=== PATIENT | male | born 1990 | race Caucasian/White ===

== ENCOUNTER 2022-10-31 12:06 | Inpatient (IN) ==
[2022-10-31 13:11] LABS: Hematocrit 34.8 % (38-53); Hemoglobin 11.9 g/dL (13.2-16.3); Mean Corpuscular Hemoglobin 29.8 pg (27-33); Mean Corpuscular Hgb Conc 34.1 g/dL (31-36); Mean Corpuscular Volume 87.4 fL (80-97); Mean Platelet Volume 8.2 fL (7.5-11.2); Platelet Count 174 10^3/uL (150-450); Red Blood Count 3.98 10^6/uL (4.06-5.63); Red Cell Distribution Width 13.9 % (12-17); White Blood Count 16.4 10^3/uL (3.6-10.2)
[2022-10-31] MEDS ORDERED: NS 0.9% 1000 ml BAG 1,000 ML IV ONE ×2 (13:12→13:13)
[2022-10-31] MEDS ORDERED: Calcitonin (Salmon) INJ 200 UNITS/ML 2 ML VIAL (400 units) SUBCUT ONE (13:13)
[2022-10-31 13:30] LABS: Albumin 3.5 g/dL (3.2-5.2); Albumin/Globulin Ratio 1.1 (1-3); Creatinine, Serum 3.64 mg/dL (0.67-1.17); Globulin 3.3 g/dL (2-4); Potassium 4.6 mmol/L (3.5-5.0); Total Bilirubin 0.7 mg/dL (0.2-1.0); Total Protein 6.8 g/dL (6.4-8.9); eGFR CKD-EPI 21.6 (>60)
[2022-10-31 14:01] LABS: Calcium 14.1 mg/dL (8.6-10.3)
[2022-10-31 14:09] LABS: ABS Basophils 0.2 10^3/uL (0.0-0.1); ABS Eosinophils 0.2 10^3/uL (0.0-0.5); ABS Lymphocytes 5.7 10^3/uL (1.0-4.8); ABS Neutrophils 9.3 10^3/uL (1.5-7.6); ABS Nucleated RBC 0.01 10^3/ul; Eosinophil % 1.4 %; Lymphocyte % 34.8 %; Nucleated Red Blood Cells % 0.1 /100 WBC (0.0-0.4)
[2022-10-31 14:27] LABS: Uric Acid 11.6 mg/dL (4.4-7.6)
[2022-10-31] MEDS ORDERED: Rasburicase 1.5 MG VIAL(NF) IVPB ONE ×2 (15:00)
[2022-10-31] MEDS ORDERED: Ondansetron 4 mg VIAL 2 MG/ML 2 ml VIAL IV PRN (15:09)
[2022-10-31] MEDS ORDERED: Morphine 2 MG/ML SYRINGE IV PRN (16:38)
[2022-10-31] MEDS ORDERED: Rasburicase 6 MG in NS 0.9% 50 ML 46 ML IVPB ONE (17:00)
[2022-10-31] MEDS ORDERED: Prochlorperazine 5 mg/ml 2 ml VIAL (10 mg) IV PRN (17:44)
[2022-10-31] MEDS ORDERED: Senna TAB 8.6 mg TAB PO ONE (17:46)
[2022-10-31] MEDS ORDERED: Senna TAB 8.6 mg TAB PO PRN (17:47)
[2022-10-31] MEDS ORDERED: Magnesium Hydroxide LIQ 30 ML UDC PO PRN (17:47)
[2022-10-31] MEDS: Acetaminophen IV 1 GM/100ML 1,000 MG/100 ML BAG IV SCH (17:50)
[2022-10-31] MEDS: NS 0.9% 1000 ml BAG 1,000 ML IV SCH ×2 (18:26→22:59)
[2022-10-31] MEDS: Heparin 5000 UNITS/ML 1 mL VIAL SUBCUT SCH (21:07)
[2022-10-31] MEDS: Calcitonin (Salmon) INJ 200 UNITS/ML 2 ML VIAL (400 units) SUBCUT SCH (21:08)
[2022-10-31] MEDS: Morphine 2 MG/ML SYRINGE IV PRN (23:02)
[2022-11-01] MEDS: Acetaminophen IV 1 GM/100ML 1,000 MG/100 ML BAG IV SCH ×4 (00:12→22:51)
[2022-11-01] MEDS: Morphine 2 MG/ML SYRINGE IV PRN ×3 (02:48→20:15)
[2022-11-01 03:11] LABS: ABS Basophils 0.1 10^3/uL (0.0-0.1); ABS Eosinophils 0.2 10^3/uL (0.0-0.5); ABS Neutrophils 6.4 10^3/uL (1.5-7.6); ABS Nucleated RBC 0.01 10^3/ul; Eosinophil % 1.9 %; Hematocrit 28.6 % (38-53); Lymphocyte % 39.2 %; Mean Corpuscular Hemoglobin 30.3 pg (27-33); Mean Corpuscular Hgb Conc 35.1 g/dL (31-36); Mean Corpuscular Volume 86.3 fL (80-97); Nucleated Red Blood Cells % 0.1 /100 WBC (0.0-0.4); Platelet Count 143 10^3/uL (150-450); Red Blood Count 3.31 10^6/uL (4.06-5.63); Red Cell Distribution Width 13.8 % (12-17); White Blood Count 12.8 10^3/uL (3.6-10.2)
[2022-11-01 03:28] LABS: Albumin 2.9 g/dL (3.2-5.2); Albumin/Globulin Ratio 1.1 (1-3); Calcium 11.2 mg/dL (8.6-10.3); Creatinine, Serum 3.38 mg/dL (0.67-1.17); Globulin 2.7 g/dL (2-4); Magnesium 1.5 mg/dL (1.9-2.7); Phosphorus 4.2 mg/dL (2.5-5.0); Total Bilirubin 0.4 mg/dL (0.2-1.0); Total Protein 5.6 g/dL (6.4-8.9); Uric Acid 4.4 mg/dL (4.4-7.6); eGFR CKD-EPI 23.6 (>60)
[2022-11-01] MEDS: Heparin 5000 UNITS/ML 1 mL VIAL SUBCUT SCH ×2 (08:05→23:01)
[2022-11-01] MEDS: Calcitonin (Salmon) INJ 200 UNITS/ML 2 ML VIAL (400 units) SUBCUT SCH ×2 (08:08→22:57)
[2022-11-01] MEDS ORDERED: NS 0.9% 1000 ml BAG 1,000 ML IV SCH (10:15)
[2022-11-01] MEDS: NS 0.9% 1000 ml BAG 1,000 ML IV SCH (10:20)
[2022-11-01 10:21] LABS: Activated Partial Thrombo Time 25.5 seconds (26.0-38.0); INR 1.21 (0.88-1.18)
[2022-11-01] MEDS ORDERED: Lidocaine 2% w/ EPI 1:200,000 MPF 20 ML SDV VIAL INJ ONE ×2 (11:00)
[2022-11-01] MEDS ORDERED: Zoledronic Acid 4 MG in NS 0.9% 100 ml BAG 100 ML IVPB ONE (12:00)
[2022-11-01] MEDS: Dexamethasone IV 4 MG/ML VIAL 1 ml VIAL IV SLOW PU SCH ×2 (12:11→22:43)
[2022-11-01 13:33] LABS: Hepatitis B Surface Antigen Nonreactive (Nonreactive)
[2022-11-01] MEDS ORDERED: Vancomycin 1,000 MG in NS 0.9% 250 ml 250 ML IVPB ONE (13:34)
[2022-11-01 13:39] LABS: Hepatitis A Ab IgM Negative (Negative); Hepatitis B Core IgM Nonreactive (Nonreactive)
[2022-11-01 13:50] LABS: HIV 4th Generation Nonreactive (Nonreactive)
[2022-11-01 13:51] LABS: Hepatitis B Surface Ab Immune (Immune)
[2022-11-01 13:52] LABS: Hepatitis C Antibody Reactive (Negative)
[2022-11-01] MEDS ORDERED: Vancomycin per Pharmacy 1 EA NOTE FOLLOW UP SCH (14:00)
[2022-11-01 16:31] LABS: Albumin 3.2 g/dL (3.2-5.2); Albumin/Globulin Ratio 1.1 (1-3); Calcium 10.9 mg/dL (8.6-10.3); Creatinine, Serum 2.91 mg/dL (0.67-1.17); Globulin 2.9 g/dL (2-4); Potassium 4.2 mmol/L (3.5-5.0); Total Bilirubin 0.3 mg/dL (0.2-1.0); Total Protein 6.1 g/dL (6.4-8.9); Uric Acid 2.2 mg/dL (4.4-7.6); eGFR CKD-EPI 28.3 (>60)
[2022-11-01 16:52] LABS: Hematocrit 30.8 % (38-53); Hemoglobin 10.7 g/dL (13.2-16.3); Mean Corpuscular Hemoglobin 30.5 pg (27-33); Mean Corpuscular Hgb Conc 34.6 g/dL (31-36); Mean Corpuscular Volume 88.1 fL (80-97); Mean Platelet Volume 8.9 fL (7.5-11.2); Platelet Count 152 10^3/uL (150-450); Red Cell Distribution Width 13.5 % (12-17); White Blood Count 11.1 10^3/uL (3.6-10.2)
[2022-11-01 17:50] LABS: INR 1.19 (0.88-1.18)
[2022-11-01 18:55] LABS: ABS Basophils 0.1 10^3/uL (0.0-0.1); ABS Eosinophils 0.1 10^3/uL (0.0-0.5); ABS Lymphocytes 4.1 10^3/uL (1.0-4.8); ABS Monocytes 0.4 10^3/uL (0.0-1.1); ABS Neutrophils 6.5 10^3/uL (1.5-7.6); ABS Nucleated RBC 0.01 10^3/ul; Lymphocyte % 36.7 %
[2022-11-02] MEDS: Morphine 2 MG/ML SYRINGE IV PRN ×4 (00:27→19:44)
[2022-11-02] MEDS ORDERED: Vancomycin Random Level NOTE FOLLOW UP ONE (06:00)
[2022-11-02 06:18] LABS: Hematocrit 29.5 % (38-53); Hemoglobin 10.5 g/dL (13.2-16.3); Mean Corpuscular Hemoglobin 30.4 pg (27-33); Mean Corpuscular Hgb Conc 35.6 g/dL (31-36); Mean Corpuscular Volume 85.4 fL (80-97); Mean Platelet Volume 8.9 fL (7.5-11.2); Platelet Count 165 10^3/uL (150-450); Red Blood Count 3.46 10^6/uL (4.06-5.63); Red Cell Distribution Width 13.6 % (12-17)
[2022-11-02 06:28] LABS: Albumin 3.2 g/dL (3.2-5.2); Albumin/Globulin Ratio 1.1 (1-3); Calcium 10.8 mg/dL (8.6-10.3); Creatinine, Serum 2.54 mg/dL (0.67-1.17); Magnesium 1.6 mg/dL (1.9-2.7); Potassium 4.2 mmol/L (3.5-5.0); Total Bilirubin 0.3 mg/dL (0.2-1.0); Total Protein 6.2 g/dL (6.4-8.9); Uric Acid 2.9 mg/dL (4.4-7.6); eGFR CKD-EPI 33.3 (>60)
[2022-11-02 06:31] LABS: Vancomycin Random 8.9 mcg/mL
[2022-11-02 06:52] LABS: ABS Monocytes 0.7 10^3/uL (0.0-1.1); ABS Neutrophils 9.2 10^3/uL (1.5-7.6); ABS Nucleated RBC 0.03 10^3/ul; Eosinophil % 0.1 %; Lymphocyte % 28.6 %; Nucleated Red Blood Cells % 0.2 /100 WBC (0.0-0.4)
[2022-11-02] MEDS ORDERED: Magnesium Sulfate IV 3 GM in NS 0.9% 100 ml BAG 100 ML IVPB ONE (07:29)
[2022-11-02] MEDS ORDERED: Vancomycin 1,250 MG in NS 0.9% 250 ml 250 ML IVPB ONE (08:00)
[2022-11-02] MEDS: Acetaminophen IV 1 GM/100ML 1,000 MG/100 ML BAG IV SCH ×2 (08:01→16:46)
[2022-11-02] MEDS: Heparin 5000 UNITS/ML 1 mL VIAL SUBCUT SCH ×2 (09:43→19:49)
[2022-11-02] MEDS: Dexamethasone IV 4 MG/ML VIAL 1 ml VIAL IV SLOW PU SCH ×2 (09:47→19:50)
[2022-11-02 16:59] LABS: Hematocrit 31.3 % (38-53); Mean Corpuscular Hemoglobin 30.2 pg (27-33); Mean Corpuscular Hgb Conc 35.2 g/dL (31-36); Mean Corpuscular Volume 85.6 fL (80-97); Mean Platelet Volume 8.1 fL (7.5-11.2); Platelet Count 183 10^3/uL (150-450); Red Blood Count 3.66 10^6/uL (4.06-5.63); Red Cell Distribution Width 13.9 % (12-17); White Blood Count 19.2 10^3/uL (3.6-10.2)
[2022-11-02 17:17] LABS: Albumin 3.5 g/dL (3.2-5.2); Albumin/Globulin Ratio 1.1 (1-3); Calcium 10.9 mg/dL (8.6-10.3); Creatinine, Serum 2.24 mg/dL (0.67-1.17); Globulin 3.3 g/dL (2-4); Magnesium 2.2 mg/dL (1.9-2.7); Potassium 4.1 mmol/L (3.5-5.0); Total Bilirubin 0.3 mg/dL (0.2-1.0); Total Protein 6.8 g/dL (6.4-8.9); Uric Acid 3.2 mg/dL (4.4-7.6); eGFR CKD-EPI 38.7 (>60)
[2022-11-02 19:42] LABS: ABS Basophils 0.2 10^3/uL (0.0-0.1); ABS Monocytes 1.7 10^3/uL (0.0-1.1); ABS Neutrophils 12.3 10^3/uL (1.5-7.6); ABS Nucleated RBC 0.03 10^3/ul; Eosinophil % 0.1 %; Lymphocyte % 26.1 %; Nucleated Red Blood Cells % 0.2 /100 WBC (0.0-0.4); RBC Morphology Normal (Normal)
[2022-11-02] MEDS: Polyethylene Glycol 3350 17 GM PACKET PO SCH (20:04)
[2022-11-02] MEDS ORDERED: Naloxone 0.4 mg VIAL 0.4 mg/ml 1 ml VIAL IV PUSH PRN (22:40)
[2022-11-02] MEDS ORDERED: HYDROmorphone 0.5 MG/0.5 ML SYRINGE IV SLOW PU ONE (22:40)
[2022-11-03] MEDS: Acetaminophen IV 1 GM/100ML 1,000 MG/100 ML BAG IV SCH ×4 (00:40→23:27)
[2022-11-03] MEDS ORDERED: HYDROmorphone 0.5 MG/0.5 ML SYRINGE IV SLOW PU ONE (05:46)
[2022-11-03] MEDS ORDERED: Vancomycin Random Level NOTE FOLLOW UP ONE (06:00)
[2022-11-03] MEDS: Dexamethasone IV 4 MG/ML VIAL 1 ml VIAL IV SLOW PU SCH ×2 (07:46→21:30)
[2022-11-03] MEDS: Polyethylene Glycol 3350 17 GM PACKET PO SCH ×2 (07:47→21:31)
[2022-11-03] MEDS: Heparin 5000 UNITS/ML 1 mL VIAL SUBCUT SCH ×2 (07:47→21:30)
[2022-11-03 08:38] LABS: Hematocrit 28.9 % (38-53); Hemoglobin 10.3 g/dL (13.2-16.3); Mean Corpuscular Hemoglobin 30.6 pg (27-33); Mean Corpuscular Hgb Conc 35.6 g/dL (31-36); Mean Corpuscular Volume 86.1 fL (80-97); Mean Platelet Volume 8.4 fL (7.5-11.2); Platelet Count 180 10^3/uL (150-450); Red Blood Count 3.35 10^6/uL (4.06-5.63); Red Cell Distribution Width 13.7 % (12-17); White Blood Count 17.6 10^3/uL (3.6-10.2)
[2022-11-03 08:45] LABS: INR 1.05 (0.88-1.18)
[2022-11-03 09:01] LABS: C Reactive Protein 28.05 mg/L (<8.01); Calcium 9.5 mg/dL (8.6-10.3); Creatinine, Serum 2.14 mg/dL (0.67-1.17); Magnesium 1.7 mg/dL (1.9-2.7); Phosphorus 2.1 mg/dL (2.5-5.0); Potassium 3.8 mmol/L (3.5-5.0); Uric Acid 4.5 mg/dL (4.4-7.6); eGFR CKD-EPI 40.9 (>60)
[2022-11-03] MEDS ORDERED: Magnesium Sulfate 2 gm BAG 2 GM/50 ML BAG IVPB ONE (09:04)
[2022-11-03 09:19] LABS: RBC Morphology Normal (Normal)
[2022-11-03 09:27] LABS: ABS Lymphocytes 5.2 10^3/uL (1.0-4.8); ABS Monocytes 1.3 10^3/uL (0.0-1.1); ABS Nucleated RBC 0.01 10^3/ul; Eosinophil % 0.1 %; Lymphocyte % 29.6 %
[2022-11-03] MEDS ORDERED: HYDROmorphone 0.5 MG/0.5 ML SYRINGE IV SLOW PU PRN (10:02)
[2022-11-03] MEDS ORDERED: Morphine 2 MG/ML SYRINGE IV PRN ×2 (10:03→13:52)
[2022-11-03] MEDS ORDERED: Lidocaine 2% PF 5 ML VIAL INJ ONE (11:01)
[2022-11-03 13:05] LABS: Vancomycin Random 6.2 mcg/mL
[2022-11-03] MEDS: fentaNYL 100 mcg/2 ml 50 MCG/ML VIAL IV SLOW PU PRN ×2 (16:53→23:21)
[2022-11-03] MEDS: NS 0.9% 1000 ml BAG 1,000 ML IV SCH (16:54)
[2022-11-03] MEDS: HYDROmorphone 1 MG/1 ML SYRINGE IV SLOW PU PRN (18:43)
[2022-11-04] MEDS: HYDROmorphone 1 MG/1 ML SYRINGE IV SLOW PU PRN ×3 (03:01→19:30)
[2022-11-04] MEDS ORDERED: Calcium Carb (TUMS) 500 mg CHEW TAB PO ONE (05:04)
[2022-11-04 06:40] LABS: Hematocrit 30.7 % (38-53); Hemoglobin 10.5 g/dL (13.2-16.3); Mean Corpuscular Hgb Conc 34.1 g/dL (31-36); Mean Corpuscular Volume 87.7 fL (80-97); Mean Platelet Volume 8.8 fL (7.5-11.2); Platelet Count 197 10^3/uL (150-450); Red Blood Count 3.49 10^6/uL (4.06-5.63); Red Cell Distribution Width 13.7 % (12-17); White Blood Count 22.4 10^3/uL (3.6-10.2)
[2022-11-04] MEDS: fentaNYL 100 mcg/2 ml 50 MCG/ML VIAL IV SLOW PU PRN (06:54)
[2022-11-04] MEDS: NS 0.9% 1000 ml BAG 1,000 ML IV SCH ×2 (06:55→21:03)
[2022-11-04 06:56] LABS: C Reactive Protein 17.47 mg/L (<8.01); Calcium 8.7 mg/dL (8.6-10.3); Creatinine, Serum 1.81 mg/dL (0.67-1.17); Magnesium 1.7 mg/dL (1.9-2.7); Phosphorus 1.5 mg/dL (2.5-5.0); Potassium 4.6 mmol/L (3.5-5.0); Uric Acid 5.1 mg/dL (4.4-7.6)
[2022-11-04] MEDS ORDERED: Potassium Phosphate IV 15 MMOL in NS 0.9% 250 ml 250 ML IVPB ONE (07:08)
[2022-11-04] MEDS ORDERED: Magnesium Sulfate 2 gm BAG 2 GM/50 ML BAG IVPB ONE (07:09)
[2022-11-04] MEDS ORDERED: Sucralfate 1 gm SUSP 1 GM/10 ML UDC PO PRN (08:31)
[2022-11-04] MEDS: Polyethylene Glycol 3350 17 GM PACKET PO SCH ×3 (08:59→21:11)
[2022-11-04] MEDS: Dexamethasone IV 4 MG/ML VIAL 1 ml VIAL IV SLOW PU SCH ×2 (09:00→21:06)
[2022-11-04] MEDS: Heparin 5000 UNITS/ML 1 mL VIAL SUBCUT SCH ×2 (09:01→21:06)
[2022-11-04] MEDS: Acetaminophen IV 1 GM/100ML 1,000 MG/100 ML BAG IV SCH ×2 (09:04→17:30)
[2022-11-04 10:01] LABS: RBC Morphology Normal (Normal)
[2022-11-04] MEDS ORDERED: Al Hydrox/Mg Hydrox/Simet LIQ 30 ML UDC PO PRN (10:01)
[2022-11-04 10:02] LABS: ABS Lymphocytes 7.7 10^3/uL (1.0-4.8); ABS Neutrophils 13.7 10^3/uL (1.5-7.6); ABS Nucleated RBC 0.03 10^3/ul; Eosinophil % 0.1 %; Lymphocyte % 34.4 %; Nucleated Red Blood Cells % 0.1 /100 WBC (0.0-0.4)
[2022-11-04] MEDS ORDERED: Sucralfate 1 gm SUSP 1 GM/10 ML UDC PO SCH (11:30)
[2022-11-04] MEDS: HYDROmorphone 0.5 MG/0.5 ML SYRINGE IV SLOW PU PRN (13:33)
[2022-11-04 17:44] LABS: Calcium 8.4 mg/dL (8.6-10.3); Creatinine, Serum 1.49 mg/dL (0.67-1.17); Potassium 4.8 mmol/L (3.5-5.0); eGFR CKD-EPI 63.2 (>60)
[2022-11-05] MEDS: Acetaminophen IV 1 GM/100ML 1,000 MG/100 ML BAG IV SCH ×4 (00:14→23:09)
[2022-11-05] MEDS: HYDROmorphone 1 MG/1 ML SYRINGE IV SLOW PU PRN ×3 (02:52→23:00)
[2022-11-05 06:18] LABS: Hematocrit 26.3 % (38-53); Hemoglobin 9.1 g/dL (13.2-16.3); Mean Corpuscular Hemoglobin 30.2 pg (27-33); Mean Corpuscular Hgb Conc 34.7 g/dL (31-36); Mean Corpuscular Volume 86.9 fL (80-97); Mean Platelet Volume 8.4 fL (7.5-11.2); Platelet Count 169 10^3/uL (150-450); Red Blood Count 3.03 10^6/uL (4.06-5.63); White Blood Count 17.9 10^3/uL (3.6-10.2)
[2022-11-05 06:30] LABS: Magnesium 1.6 mg/dL (1.9-2.7); Phosphorus 1.1 mg/dL (2.5-5.0); Uric Acid 5.3 mg/dL (4.4-7.6)
[2022-11-05] MEDS ORDERED: Magnesium Sulfate IV 3 GM in NS 0.9% 100 ml BAG 100 ML IVPB ONE (07:27)
[2022-11-05] MEDS: Heparin 5000 UNITS/ML 1 mL VIAL SUBCUT SCH ×2 (08:16→20:54)
[2022-11-05] MEDS: Dexamethasone IV 4 MG/ML VIAL 1 ml VIAL IV SLOW PU SCH ×2 (08:17→20:52)
[2022-11-05] MEDS: HYDROmorphone 0.5 MG/0.5 ML SYRINGE IV SLOW PU PRN ×2 (08:17→16:40)
[2022-11-05] MEDS: Polyethylene Glycol 3350 17 GM PACKET PO SCH ×2 (08:34→20:56)
[2022-11-05] MEDS ORDERED: NS 0.9% IVPB ONE (09:11)
[2022-11-05] MEDS ORDERED: POTASSIUM PHOSPHATE IVPB ONE (09:11)
[2022-11-05] MEDS ORDERED: SODIUM PHOSPHATE IV ONE (10:00)
[2022-11-05] MEDS ORDERED: NS 0.9% IV ONE (10:00)
[2022-11-05 14:04] LABS: Calcium 7.6 mg/dL (8.6-10.3); Creatinine, Serum 1.52 mg/dL (0.67-1.17); Potassium 4.8 mmol/L (3.5-5.0); eGFR CKD-EPI 61.7 (>60)
[2022-11-05 17:45] LABS: Albumin 2.4 g/dL (3.4-4.7); Flag, M-protein Isotype Negative (Negative); Total Protein 5.4 g/dL (6.3 - 7.9)
[2022-11-05] MEDS ORDERED: Lorazepam PYXIS KEY PRN (18:00)
[2022-11-05] MEDS ORDERED: LORazepam 2 mg VIAL 1 ml IV PUSH ONE (18:00)
[2022-11-05] MEDS: fentaNYL 100 mcg/2 ml 50 MCG/ML VIAL IV SLOW PU PRN (18:19)
[2022-11-05 18:46] LABS: Hepatitis B DNA Quantitative Undetected IU/mL (Undetected)
[2022-11-06 05:26] LABS: Hematocrit 26.2 % (38-53); Hemoglobin 9.2 g/dL (13.2-16.3); Mean Corpuscular Hemoglobin 30.9 pg (27-33); Mean Corpuscular Volume 88.2 fL (80-97); Platelet Count 169 10^3/uL (150-450); Red Blood Count 2.97 10^6/uL (4.06-5.63); White Blood Count 20.4 10^3/uL (3.6-10.2)
[2022-11-06] MEDS: HYDROmorphone 1 MG/1 ML SYRINGE IV SLOW PU PRN ×2 (05:35→11:47)
[2022-11-06 05:42] LABS: Calcium 7.2 mg/dL (8.6-10.3); Creatinine, Serum 1.35 mg/dL (0.67-1.17); Magnesium 1.5 mg/dL (1.9-2.7); Phosphorus 1.3 mg/dL (2.5-5.0); Potassium 5.2 mmol/L (3.5-5.0); Uric Acid 4.7 mg/dL (4.4-7.6); eGFR CKD-EPI 71.1 (>60)
[2022-11-06] MEDS ORDERED: SODIUM ZIRCONIUM CYCLOSILICATE 5 GM PACKET PO ONE (08:00)
[2022-11-06] MEDS ORDERED: Magnesium Sulfate IV 3 GM in NS 0.9% 100 ml BAG 100 ML IVPB ONE (08:00)
[2022-11-06] MEDS ORDERED: Sodium Phosphate IV 15 MMOL in NS 0.9% 250 ml 250 ML IV ONE (08:00)
[2022-11-06 08:19] LABS: ABS Lymphocytes 5.3 10^3/uL (1.0-4.8); ABS Monocytes 1.7 10^3/uL (0.0-1.1); ABS Neutrophils 13.3 10^3/uL (1.5-7.6); ABS Nucleated RBC 0.02 10^3/ul; Eosinophil % 0.1 %; Lymphocyte % 25.8 %; Nucleated Red Blood Cells % 0.1 /100 WBC (0.0-0.4); RBC Morphology Normal (Normal)
[2022-11-06] MEDS: Polyethylene Glycol 3350 17 GM PACKET PO SCH ×2 (08:50→21:07)
[2022-11-06] MEDS: Dexamethasone IV 4 MG/ML VIAL 1 ml VIAL IV SLOW PU SCH ×2 (08:58→21:06)
[2022-11-06] MEDS: Heparin 5000 UNITS/ML 1 mL VIAL SUBCUT SCH ×2 (08:59→21:07)
[2022-11-06] MEDS ORDERED: NS 0.9% 500 ml BAG 500 ML IV SCH (09:00)
[2022-11-06] MEDS: Acetaminophen IV 1 GM/100ML 1,000 MG/100 ML BAG IV SCH ×2 (09:00→17:24)
[2022-11-06] MEDS ORDERED: APREPITANT 130 MG in Premix IV 0 ML IV ONE (09:00)
[2022-11-06] MEDS ORDERED: DOXORUBICIN IVPB SCH (09:30)
[2022-11-06] MEDS ORDERED: ETOPOSIDE IVPB SCH (09:30)
[2022-11-06] MEDS ORDERED: NS 0.9% IVPB SCH (09:30)
[2022-11-06] MEDS ORDERED: VINCRISTINE IVPB SCH (09:30)
[2022-11-06] MEDS: HYDROmorphone 0.5 MG/0.5 ML SYRINGE IV SLOW PU PRN ×2 (09:39→17:43)
[2022-11-06] MEDS ORDERED: Lorazepam PYXIS KEY PRN (10:09)
[2022-11-06] MEDS: LORazepam 2 mg VIAL 1 ml IV PUSH PRN (10:23)
[2022-11-06] MEDS: PALONOSETRON HCL 0.05 MG/ML (0.25 MG) SYRINGE (0.05 MG/ML) IV SCH (10:51)
[2022-11-06 15:03] LABS: Hepatitis C Genotype 1a (Undetected)
[2022-11-06 16:26] LABS: Albumin 255.5 mg/24 h; Albumin/Globulin Ratio 1.02; Gamma Globulin 50.1 mg/24 h; Total Protein, 24 HR, U 501 mg/24 h (<229); Urine Volume 3850 mL
[2022-11-07] MEDS: HYDROmorphone 1 MG/1 ML SYRINGE IV SLOW PU PRN ×2 (00:12→20:18)
[2022-11-07] MEDS: Acetaminophen IV 1 GM/100ML 1,000 MG/100 ML BAG IV SCH ×3 (00:12→20:48)
[2022-11-07] MEDS: fentaNYL 100 mcg/2 ml 50 MCG/ML VIAL IV SLOW PU PRN ×2 (05:56→12:29)
[2022-11-07 06:05] LABS: Hematocrit 26.7 % (38-53); Hemoglobin 9.1 g/dL (13.2-16.3); Mean Corpuscular Hemoglobin 30.4 pg (27-33); Mean Corpuscular Hgb Conc 34.2 g/dL (31-36); Mean Platelet Volume 7.8 fL (7.5-11.2); Platelet Count 190 10^3/uL (150-450); Red Cell Distribution Width 14.5 % (12-17); White Blood Count 26.5 10^3/uL (3.6-10.2)
[2022-11-07 06:21] LABS: Creatinine, Serum 1.1 mg/dL (0.67-1.17); Magnesium 1.5 mg/dL (1.9-2.7); Phosphorus 2.3 mg/dL (2.5-5.0); Potassium 4.9 mmol/L (3.5-5.0); Uric Acid 4.5 mg/dL (4.4-7.6); eGFR CKD-EPI 90.9 (>60)
[2022-11-07 06:34] LABS: Calcium 6.1 mg/dL (8.6-10.3)
[2022-11-07] MEDS ORDERED: Magnesium Sulf 4 GM/100 ML IV 4,000 MG/100 ML BAG IVPB ONE (07:30)
[2022-11-07] MEDS ORDERED: SODIUM PHOSPHATE IV ONE (08:00)
[2022-11-07] MEDS ORDERED: NS 0.9% IV ONE (08:00)
[2022-11-07 08:01] LABS: Albumin 3.1 g/dL (3.2-5.2); Albumin/Globulin Ratio 1.2 (1-3); Globulin 2.5 g/dL (2-4); Total Bilirubin 0.3 mg/dL (0.2-1.0); Total Protein 5.6 g/dL (6.4-8.9)
[2022-11-07] MEDS: Dexamethasone IV 4 MG/ML VIAL 1 ml VIAL IV SLOW PU SCH ×2 (09:06→23:10)
[2022-11-07] MEDS: Heparin 5000 UNITS/ML 1 mL VIAL SUBCUT SCH ×2 (09:11→23:06)
[2022-11-07] MEDS ORDERED: Calcium Gluconate 2 GM in NS 0.9% 100 ml BAG 100 ML IV ONE (09:15)
[2022-11-07] MEDS: Polyethylene Glycol 3350 17 GM PACKET PO SCH ×2 (09:19→23:00)
[2022-11-07] MEDS: NS 0.9% IVPB SCH (11:29)
[2022-11-07] MEDS: VINCRISTINE IVPB SCH (11:29)
[2022-11-07] MEDS: ETOPOSIDE IVPB SCH (11:29)
[2022-11-07] MEDS: DOXORUBICIN IVPB SCH (11:29)
[2022-11-07] MEDS ORDERED: CALCIUM GLUCONATE 1GM/50ML NS 1 GM/50 ML BAG IV ONE (17:30)
[2022-11-07 18:50] LABS: Hepatitis B Surface Antigen Nonreactive (Nonreactive)
[2022-11-07] MEDS: Ondansetron ODT 4 mg TAB 4 MG TAB SL PRN (20:21)
[2022-11-07] MEDS: LORazepam 2 mg VIAL 1 ml IV PUSH PRN (20:25)
[2022-11-08] MEDS: Acetaminophen IV 1 GM/100ML 1,000 MG/100 ML BAG IV SCH ×4 (01:52→23:32)
[2022-11-08] MEDS: LORazepam 2 mg VIAL 1 ml IV PUSH PRN ×2 (02:27→23:20)
[2022-11-08] MEDS: HYDROmorphone 0.5 MG/0.5 ML SYRINGE IV SLOW PU PRN ×3 (02:29→23:21)
[2022-11-08 06:58] LABS: Hematocrit 25.6 % (38-53); Hemoglobin 8.7 g/dL (13.2-16.3); Mean Corpuscular Hemoglobin 30.1 pg (27-33); Mean Corpuscular Volume 88.4 fL (80-97); Mean Platelet Volume 7.3 fL (7.5-11.2); Platelet Count 189 10^3/uL (150-450); Red Cell Distribution Width 14.5 % (12-17); White Blood Count 21.6 10^3/uL (3.6-10.2)
[2022-11-08 07:19] LABS: Albumin/Globulin Ratio 1.2 (1-3); Calcium 6.7 mg/dL (8.6-10.3); Creatinine, Serum 1.08 mg/dL (0.67-1.17); Globulin 2.5 g/dL (2-4); Magnesium 1.6 mg/dL (1.9-2.7); Potassium 5.3 mmol/L (3.5-5.0); Total Bilirubin 0.4 mg/dL (0.2-1.0); Total Protein 5.5 g/dL (6.4-8.9); eGFR CKD-EPI 92.9 (>60)
[2022-11-08] MEDS ORDERED: Magnesium Sulf 4 GM/100 ML IV 4,000 MG/100 ML BAG IVPB ONE (07:40)
[2022-11-08] MEDS: Polyethylene Glycol 3350 17 GM PACKET PO SCH ×2 (09:29→22:49)
[2022-11-08] MEDS: Dexamethasone IV 4 MG/ML VIAL 1 ml VIAL IV SLOW PU SCH ×2 (09:35→23:13)
[2022-11-08] MEDS: Heparin 5000 UNITS/ML 1 mL VIAL SUBCUT SCH (09:36)
[2022-11-08] MEDS: PALONOSETRON HCL 0.05 MG/ML (0.25 MG) SYRINGE (0.05 MG/ML) IV SCH (11:02)
[2022-11-08] MEDS: DOXORUBICIN IVPB SCH (11:28)
[2022-11-08] MEDS: ETOPOSIDE IVPB SCH (11:28)
[2022-11-08] MEDS: NS 0.9% IVPB SCH (11:28)
[2022-11-08] MEDS: VINCRISTINE IVPB SCH (11:28)
[2022-11-08] MEDS ORDERED: SODIUM ZIRCONIUM CYCLOSILICATE 5 GM PACKET PO ONE (12:00)
[2022-11-08] MEDS ORDERED: Rasburicase 1.5 MG VIAL(NF) IVPB ONE (12:02)
[2022-11-08] MEDS ORDERED: Rasburicase 3 MG in NS 0.9% 50 ML 48 ML IVPB ONE (13:00)
[2022-11-08] MEDS ORDERED: CALCIUM GLUCONATE 1GM/50ML NS 1 GM/50 ML BAG IV ONE (15:19)
[2022-11-08] MEDS: HYDROmorphone 1 MG/1 ML SYRINGE IV SLOW PU PRN (16:35)
[2022-11-08] MEDS: Enoxaparin 40 MG/0.4 ML SYR SUBCUT SCH (16:36)
[2022-11-08] MEDS: Ondansetron ODT 4 mg TAB 4 MG TAB SL PRN (23:09)
[2022-11-09] MEDS: Acetaminophen IV 1 GM/100ML 1,000 MG/100 ML BAG IV SCH ×3 (06:20→22:56)
[2022-11-09 06:41] LABS: Hematocrit 26.1 % (38-53); Mean Corpuscular Hemoglobin 30.8 pg (27-33); Mean Corpuscular Hgb Conc 34.4 g/dL (31-36); Mean Corpuscular Volume 89.6 fL (80-97); Mean Platelet Volume 7.4 fL (7.5-11.2); Platelet Count 202 10^3/uL (150-450); Red Blood Count 2.91 10^6/uL (4.06-5.63); Red Cell Distribution Width 14.6 % (12-17); White Blood Count 17.2 10^3/uL (3.6-10.2)
[2022-11-09 06:55] LABS: ABS Lymphocytes 2.6 10^3/uL (1.0-4.8); ABS Monocytes 0.6 10^3/uL (0.0-1.1); ABS Neutrophils 14.1 10^3/uL (1.5-7.6); ABS Nucleated RBC 0.01 10^3/ul; Lymphocyte % 14.8 %; Nucleated Red Blood Cells % 0.1 /100 WBC (0.0-0.4)
[2022-11-09 06:58] LABS: Albumin 3.1 g/dL (3.2-5.2); Albumin/Globulin Ratio 1.2 (1-3); Calcium 6.5 mg/dL (8.6-10.3); Creatinine, Serum 0.94 mg/dL (0.67-1.17); Globulin 2.5 g/dL (2-4); Magnesium 1.6 mg/dL (1.9-2.7); Potassium 4.8 mmol/L (3.5-5.0); Total Bilirubin 0.4 mg/dL (0.2-1.0); Total Protein 5.6 g/dL (6.4-8.9); Uric Acid 2.1 mg/dL (4.4-7.6); eGFR CKD-EPI 109.8 (>60)
[2022-11-09] MEDS: Polyethylene Glycol 3350 17 GM PACKET PO SCH ×2 (07:32→21:34)
[2022-11-09] MEDS ORDERED: Magnesium Sulfate IV 3 GM in NS 0.9% 100 ml BAG 100 ML IVPB ONE (07:44)
[2022-11-09] MEDS: Dexamethasone IV 4 MG/ML VIAL 1 ml VIAL IV SLOW PU SCH ×2 (08:31→20:21)
[2022-11-09] MEDS: LORazepam 2 mg VIAL 1 ml IV PUSH PRN ×2 (08:41→20:21)
[2022-11-09] MEDS: HYDROmorphone 1 MG/1 ML SYRINGE IV SLOW PU PRN ×2 (10:48→20:21)
[2022-11-09] MEDS: ETOPOSIDE IVPB SCH (10:57)
[2022-11-09] MEDS: NS 0.9% IVPB SCH (10:57)
[2022-11-09] MEDS: DOXORUBICIN IVPB SCH (10:57)
[2022-11-09] MEDS: VINCRISTINE IVPB SCH (10:57)
[2022-11-09] MEDS ORDERED: CALCIUM GLUCONATE 1GM/50ML NS 1 GM/50 ML BAG IV ONE (11:13)
[2022-11-09] MEDS: Enoxaparin 40 MG/0.4 ML SYR SUBCUT SCH (17:22)
[2022-11-10] MEDS: LORazepam 2 mg VIAL 1 ml IV PUSH PRN ×2 (05:26→14:54)
[2022-11-10] MEDS: Acetaminophen IV 1 GM/100ML 1,000 MG/100 ML BAG IV SCH ×3 (05:35→21:30)
[2022-11-10 05:50] LABS: Hemoglobin 8.9 g/dL (13.2-16.3); Mean Corpuscular Hemoglobin 30.6 pg (27-33); Mean Corpuscular Hgb Conc 34.4 g/dL (31-36); Mean Corpuscular Volume 88.9 fL (80-97); Mean Platelet Volume 7.4 fL (7.5-11.2); Platelet Count 204 10^3/uL (150-450); Red Blood Count 2.92 10^6/uL (4.06-5.63); Red Cell Distribution Width 14.8 % (12-17); White Blood Count 12.5 10^3/uL (3.6-10.2)
[2022-11-10 06:06] LABS: Calcium 6.6 mg/dL (8.6-10.3); Creatinine, Serum 0.83 mg/dL (0.67-1.17); Magnesium 1.4 mg/dL (1.9-2.7); Phosphorus 3.2 mg/dL (2.5-5.0); Potassium 4.5 mmol/L (3.5-5.0); Uric Acid 2.4 mg/dL (4.4-7.6); eGFR CKD-EPI 118.5 (>60)
[2022-11-10] MEDS ORDERED: Magnesium Sulf 4 GM/100 ML IV 4,000 MG/100 ML BAG IVPB ONE (08:00)
[2022-11-10] MEDS: Polyethylene Glycol 3350 17 GM PACKET PO SCH ×2 (08:33→21:45)
[2022-11-10] MEDS: Dexamethasone IV 4 MG/ML VIAL 1 ml VIAL IV SLOW PU SCH (08:33)
[2022-11-10] MEDS: HYDROmorphone 1 MG/1 ML SYRINGE IV SLOW PU PRN ×2 (08:44→21:29)
[2022-11-10] MEDS ORDERED: CALCIUM GLUCONATE 1GM/50ML NS 1 GM/50 ML BAG IV ONE (08:45)
[2022-11-10] MEDS ORDERED: NS 0.9% ONE (09:00)
[2022-11-10] MEDS ORDERED: CYTARABINE ONE (09:00)
[2022-11-10] MEDS ORDERED: NS 0.9% IVPB ONE (09:30)
[2022-11-10] MEDS ORDERED: CYCLOPHOSPHAMIDE IVPB ONE (09:30)
[2022-11-10] MEDS: Calcium Gluconate 2 GM in NS 0.9% 100 ml BAG 100 ML IV ONE ×2 (11:49→12:19)
[2022-11-10 13:16] LABS: Body Fluid Source Cerebral Spinal
[2022-11-10 13:42] LABS: Body Fluid Appearance Clear; Body Fluid Color Colorless; CSF Tube # 1
[2022-11-10 13:43] LABS: Body Fluid WBC 2 /mcL
[2022-11-10] MEDS: Enoxaparin 40 MG/0.4 ML SYR SUBCUT SCH (16:07)
[2022-11-10 16:09] LABS: Body Fluid Total Cells Counted 4
[2022-11-11] MEDS: LORazepam 2 mg VIAL 1 ml IV PUSH PRN (00:19)
[2022-11-11] MEDS ORDERED: CALCIUM GLUCONATE 1GM/50ML NS 1 GM/50 ML BAG IV ONE (03:57)
[2022-11-11] MEDS: HYDROmorphone 1 MG/1 ML SYRINGE IV SLOW PU PRN ×2 (04:11→16:03)
[2022-11-11] MEDS: Acetaminophen IV 1 GM/100ML 1,000 MG/100 ML BAG IV SCH ×3 (05:44→21:09)
[2022-11-11] MEDS ORDERED: methylPREDNISolone SOD SUCC 125 mg 2 ML VIAL IV ONE (09:00)
[2022-11-11] MEDS ORDERED: Famotidine IV 10 MG/ML 2 ml VIAL (20 mg) IV ONE (09:00)
[2022-11-11] MEDS: Polyethylene Glycol 3350 17 GM PACKET PO SCH ×2 (09:22→21:09)
[2022-11-11] MEDS: HYDROmorphone 0.5 MG/0.5 ML SYRINGE IV SLOW PU PRN (09:23)
[2022-11-11] MEDS ORDERED: RITUXIMAB ABBS IVPB ONE (09:30)
[2022-11-11] MEDS ORDERED: NS 0.9% IVPB ONE (09:30)
[2022-11-11 10:38] LABS: ABS Basophils 0.1 10^3/uL (0.0-0.1); ABS Eosinophils 0.3 10^3/uL (0.0-0.5); ABS Lymphocytes 2.9 10^3/uL (1.0-4.8); ABS Monocytes 0.1 10^3/uL (0.0-1.1); ABS Nucleated RBC 0.01 10^3/ul; Eosinophil % 2.5 %; Hematocrit 28.4 % (38-53); Lymphocyte % 21.6 %; Mean Corpuscular Hemoglobin 31.1 pg (27-33); Mean Corpuscular Hgb Conc 35.1 g/dL (31-36); Mean Corpuscular Volume 88.6 fL (80-97); Mean Platelet Volume 7.1 fL (7.5-11.2); Nucleated Red Blood Cells % 0.1 /100 WBC (0.0-0.4); Platelet Count 232 10^3/uL (150-450); Red Blood Count 3.21 10^6/uL (4.06-5.63); Red Cell Distribution Width 14.6 % (12-17); White Blood Count 13.4 10^3/uL (3.6-10.2)
[2022-11-11 11:38] LABS: Albumin 3.2 g/dL (3.2-5.2); Albumin/Globulin Ratio 1.3 (1-3); Calcium 7.8 mg/dL (8.6-10.3); Creatinine, Serum 0.86 mg/dL (0.67-1.17); Globulin 2.4 g/dL (2-4); Magnesium 1.3 mg/dL (1.9-2.7); Phosphorus 2.5 mg/dL (2.5-5.0); Potassium 4.6 mmol/L (3.5-5.0); Total Bilirubin 0.4 mg/dL (0.2-1.0); Total Protein 5.6 g/dL (6.4-8.9); eGFR CKD-EPI 117.3 (>60)
[2022-11-11] MEDS: Enoxaparin 40 MG/0.4 ML SYR SUBCUT SCH (16:12)
[2022-11-11] MEDS: Calcium Gluconate 2 GM in NS 0.9% 100 ml BAG 100 ML IV ONE ×2 (16:35→18:19)
[2022-11-11] MEDS: fentaNYL 100 mcg/2 ml 50 MCG/ML VIAL IV SLOW PU PRN (21:01)
[2022-11-12] MEDS: LORazepam 2 mg VIAL 1 ml IV PUSH PRN ×2 (00:15→13:10)
[2022-11-12] MEDS: HYDROmorphone 0.5 MG/0.5 ML SYRINGE IV SLOW PU PRN ×2 (00:20→22:01)
[2022-11-12] MEDS: fentaNYL 100 mcg/2 ml 50 MCG/ML VIAL IV SLOW PU PRN ×3 (04:48→17:40)
[2022-11-12] MEDS: Acetaminophen IV 1 GM/100ML 1,000 MG/100 ML BAG IV SCH ×2 (04:49→15:58)
[2022-11-12 05:57] LABS: ABS Eosinophils 0.3 10^3/uL (0.0-0.5); ABS Lymphocytes 1.1 10^3/uL (1.0-4.8); ABS Neutrophils 9.2 10^3/uL (1.5-7.6); ABS Nucleated RBC 0.02 10^3/ul; Eosinophil % 2.5 %; Hematocrit 24.1 % (38-53); Hemoglobin 8.5 g/dL (13.2-16.3); Lymphocyte % 10.5 %; Mean Corpuscular Hemoglobin 31.4 pg (27-33); Mean Corpuscular Hgb Conc 35.4 g/dL (31-36); Mean Corpuscular Volume 88.7 fL (80-97); Nucleated Red Blood Cells % 0.2 /100 WBC (0.0-0.4); Platelet Count 177 10^3/uL (150-450); Red Blood Count 2.71 10^6/uL (4.06-5.63); Red Cell Distribution Width 14.5 % (12-17); White Blood Count 10.7 10^3/uL (3.6-10.2)
[2022-11-12 06:19] LABS: Calcium 7.2 mg/dL (8.6-10.3); Potassium 4.8 mmol/L (3.5-5.0)
[2022-11-12 06:24] LABS: Creatinine, Serum 0.95 mg/dL (0.67-1.17); eGFR CKD-EPI 108.4 (>60)
[2022-11-12] MEDS: Polyethylene Glycol 3350 17 GM PACKET PO SCH ×2 (06:58→20:28)
[2022-11-12] MEDS: HYDROmorphone 1 MG/1 ML SYRINGE IV SLOW PU PRN ×3 (07:05→20:32)
[2022-11-12] MEDS ORDERED: Calcium Gluconate 2 GM in NS 0.9% 100 ml BAG 100 ML IV ONE (10:07)
[2022-11-12] MEDS: Enoxaparin 40 MG/0.4 ML SYR SUBCUT SCH (16:19)
[2022-11-12] MEDS: Ondansetron ODT 4 mg TAB 4 MG TAB SL PRN (17:51)
[2022-11-12 18:36] LABS: Magnesium 1.2 mg/dL (1.9-2.7)
[2022-11-13] MEDS: LORazepam 2 mg VIAL 1 ml IV PUSH PRN ×2 (00:16→09:45)
[2022-11-13] MEDS ORDERED: Calcium Gluconate 1 GM/10 ML VIAL (in Pyxis) IV PUSH ONE (01:22)
[2022-11-13] MEDS: fentaNYL 100 mcg/2 ml 50 MCG/ML VIAL IV SLOW PU PRN ×4 (02:00→22:31)
[2022-11-13] MEDS: HYDROmorphone 1 MG/1 ML SYRINGE IV SLOW PU PRN ×2 (04:00→11:50)
[2022-11-13 05:52] LABS: ABS Eosinophils 0.2 10^3/uL (0.0-0.5); ABS Lymphocytes 0.9 10^3/uL (1.0-4.8); ABS Neutrophils 16.2 10^3/uL (1.5-7.6); Eosinophil % 1.3 %; Hematocrit 25.8 % (38-53); Hemoglobin 8.9 g/dL (13.2-16.3); Lymphocyte % 5.4 %; Mean Corpuscular Hemoglobin 30.7 pg (27-33); Mean Corpuscular Hgb Conc 34.7 g/dL (31-36); Mean Corpuscular Volume 88.3 fL (80-97); Mean Platelet Volume 6.7 fL (7.5-11.2); Platelet Count 159 10^3/uL (150-450); Red Blood Count 2.92 10^6/uL (4.06-5.63); Red Cell Distribution Width 14.4 % (12-17); White Blood Count 17.5 10^3/uL (3.6-10.2)
[2022-11-13 06:13] LABS: Albumin 3.2 g/dL (3.2-5.2); Albumin/Globulin Ratio 1.3 (1-3); Calcium 7.8 mg/dL (8.6-10.3); Creatinine, Serum 0.78 mg/dL (0.67-1.17); Globulin 2.4 g/dL (2-4); Magnesium 1.3 mg/dL (1.9-2.7); Phosphorus 4.1 mg/dL (2.5-5.0); Potassium 4.4 mmol/L (3.5-5.0); Total Bilirubin 0.7 mg/dL (0.2-1.0); Total Protein 5.6 g/dL (6.4-8.9); eGFR CKD-EPI 120.8 (>60)
[2022-11-13] MEDS: HYDROmorphone 0.5 MG/0.5 ML SYRINGE IV SLOW PU PRN (06:14)
[2022-11-13 06:30] LABS: Calcium (PTH Intact) 7.7 mg/dL (8.6-10.3)
[2022-11-13] MEDS ORDERED: Magnesium Sulf 4 GM/100 ML IV 4,000 MG/100 ML BAG IVPB ONE (08:00)
[2022-11-13 08:31] LABS: BLYM Source Bone; BLYM Tissue ID S23-6799
[2022-11-13] MEDS: Ondansetron ODT 4 mg TAB 4 MG TAB SL PRN ×2 (09:32→17:35)
[2022-11-13] MEDS: Polyethylene Glycol 3350 17 GM PACKET PO SCH ×2 (09:34→22:10)
[2022-11-13] MEDS ORDERED: CMCS: LoraTADine 10 mg TAB (NF) PO PRN (10:13)
[2022-11-13] MEDS: NS 0.9% 1000 ml BAG 1,000 ML IV SCH ×2 (11:50→22:31)
[2022-11-13] MEDS: Enoxaparin 40 MG/0.4 ML SYR SUBCUT SCH (14:47)
[2022-11-13] MEDS: Calcium/Vitamin D TAB 250/125 TAB PO SCH ×2 (14:48→20:51)
[2022-11-13] MEDS ORDERED: Acetaminophen IV 1 GM/100ML 1,000 MG/100 ML BAG IV ONE (16:24)
[2022-11-13 18:29] LABS: ABS Eosinophils 0.2 10^3/uL (0.0-0.5); ABS Lymphocytes 0.6 10^3/uL (1.0-4.8); ABS Neutrophils 8.4 10^3/uL (1.5-7.6); Eosinophil % 2.1 %; Hematocrit 23.9 % (38-53); Hemoglobin 8.2 g/dL (13.2-16.3); Lymphocyte % 6.9 %; Mean Corpuscular Hemoglobin 30.4 pg (27-33); Mean Corpuscular Hgb Conc 34.4 g/dL (31-36); Mean Corpuscular Volume 88.4 fL (80-97); Mean Platelet Volume 6.4 fL (7.5-11.2); Platelet Count 140 10^3/uL (150-450); Red Cell Distribution Width 14.3 % (12-17); White Blood Count 9.3 10^3/uL (3.6-10.2)
[2022-11-13 18:39] LABS: Activated Partial Thrombo Time 28.1 seconds (26.0-38.0); INR 1.01 (0.88-1.18)
[2022-11-13] MEDS ORDERED: HYDROmorphone 1 MG/1 ML SYRINGE IV SLOW PU PRN (18:39)
[2022-11-14] MEDS ORDERED: HYDROmorphone 1 MG/1 ML SYRINGE IV SLOW PU ONE (00:12)
[2022-11-14] MEDS: HYDROmorphone 1 MG/1 ML SYRINGE IV SLOW PU PRN ×4 (06:01→22:33)
[2022-11-14] MEDS ORDERED: CALCIUM GLUCONATE 1GM/50ML NS 1 GM/50 ML BAG IV ONE ×2 (06:12→12:49)
[2022-11-14 06:27] LABS: ABS Eosinophils 0.2 10^3/uL (0.0-0.5); ABS Lymphocytes 0.6 10^3/uL (1.0-4.8); ABS Neutrophils 3.6 10^3/uL (1.5-7.6); ABS Nucleated RBC 0.01 10^3/ul; Eosinophil % 3.6 %; Hematocrit 24.9 % (38-53); Hemoglobin 8.8 g/dL (13.2-16.3); Mean Corpuscular Hemoglobin 31.1 pg (27-33); Mean Corpuscular Hgb Conc 35.2 g/dL (31-36); Mean Corpuscular Volume 88.4 fL (80-97); Mean Platelet Volume 6.7 fL (7.5-11.2); Nucleated Red Blood Cells % 0.2 /100 WBC (0.0-0.4); Platelet Count 132 10^3/uL (150-450); Red Blood Count 2.82 10^6/uL (4.06-5.63); Red Cell Distribution Width 14.1 % (12-17); White Blood Count 4.5 10^3/uL (3.6-10.2)
[2022-11-14 06:44] LABS: Albumin 3.1 g/dL (3.2-5.2); Albumin/Globulin Ratio 1.3 (1-3); Calcium 7.4 mg/dL (8.6-10.3); Creatinine, Serum 0.88 mg/dL (0.67-1.17); Globulin 2.4 g/dL (2-4); Magnesium 1.6 mg/dL (1.9-2.7); Phosphorus 2.8 mg/dL (2.5-5.0); Total Bilirubin 0.6 mg/dL (0.2-1.0); Total Protein 5.5 g/dL (6.4-8.9); eGFR CKD-EPI 116.4 (>60)
[2022-11-14] MEDS ORDERED: Magnesium Sulf 4 GM/100 ML IV 4,000 MG/100 ML BAG IVPB ONE (07:10)
[2022-11-14] MEDS: Polyethylene Glycol 3350 17 GM PACKET PO SCH ×2 (10:02→21:50)
[2022-11-14] MEDS: Calcium/Vitamin D TAB 250/125 TAB PO SCH ×2 (10:03→20:39)
[2022-11-14] MEDS: Enoxaparin 40 MG/0.4 ML SYR SUBCUT SCH (17:54)
[2022-11-14 18:49] LABS: Hematocrit 22.8 % (38-53); Hemoglobin 7.8 g/dL (13.2-16.3); Mean Corpuscular Volume 88.1 fL (80-97); Mean Platelet Volume 6.8 fL (7.5-11.2); Platelet Count 107 10^3/uL (150-450); Red Blood Count 2.59 10^6/uL (4.06-5.63); Red Cell Distribution Width 13.7 % (12-17); White Blood Count 1.5 10^3/uL (3.6-10.2)
[2022-11-14 18:51] LABS: ABS Eosinophils 0.1 10^3/uL (0.0-0.5); ABS Lymphocytes 0.5 10^3/uL (1.0-4.8); ABS Nucleated RBC 0.01 10^3/ul; Eosinophil % 5.9 %; Lymphocyte % 33.5 %; Nucleated Red Blood Cells % 0.5 /100 WBC (0.0-0.4)
[2022-11-14 18:53] LABS: ABS Neutrophils 0.9 10^3/uL (1.5-7.6)
[2022-11-14] MEDS ORDERED: Vancomycin 1,000 MG - ED ONCE IVPB ONE (19:00)
[2022-11-14] MEDS ORDERED: Vancomycin per Pharmacy 1 EA NOTE FOLLOW UP SCH (19:00)
[2022-11-14 19:20] LABS: Albumin/Globulin Ratio 1.2 (1-3); Creatinine, Serum 0.88 mg/dL (0.67-1.17); Globulin 2.5 g/dL (2-4); Potassium 4.1 mmol/L (3.5-5.0); Total Bilirubin 0.6 mg/dL (0.2-1.0); Total Protein 5.5 g/dL (6.4-8.9); eGFR CKD-EPI 116.4 (>60)
[2022-11-14 19:56] LABS: Urine Appearance Clear; Urine Bilirubin Negative (Negative); Urine Blood Negative (Negative); Urine Color Yellow; Urine Glucose 1+(50 mg/dL) (Negative); Urine Ketones Negative (Negative); Urine Nitrite Negative (Negative); Urine Protein 1+(30 mg/dL) (Negative); Urine Specific Gravity 1.012 (1.002-1.030); Urine Urobilinogen Negative (Negative)
[2022-11-14 20:00] LABS: Urine Bacteria Absent (Absent); Urine Red Blood Cell Trace(0-2/hpf) (Absent); Urine White Blood Cell Trace(0-5/hpf) (Absent)
[2022-11-14] MEDS: Morphine ER 15 mg TAB ** extended release PO SCH (20:38)
[2022-11-14] MEDS: Cefepime 2 GM in Dextrose 2 GM/50 ML BAG IV SCH (20:48)
[2022-11-14] MEDS ORDERED: Naloxone Nasal Spray 4 MG/0.1 ML NASAL.SPR INTRANASAL PRN (22:04)
[2022-11-15] MEDS: Cefepime 2 GM in Dextrose 2 GM/50 ML BAG IV SCH ×3 (02:46→19:53)
[2022-11-15] MEDS: Vancomycin 1000 MG in NS 0.9% 250 ML IVPB SCH ×3 (03:36→22:49)
[2022-11-15 06:20] LABS: ABS Eosinophils 0.1 10^3/uL (0.0-0.5); ABS Lymphocytes 0.3 10^3/uL (1.0-4.8); ABS Neutrophils 0.4 10^3/uL (1.5-7.6); Eosinophil % 6.4 %; Hematocrit 21.3 % (38-53); Hemoglobin 7.5 g/dL (13.2-16.3); Lymphocyte % 43.6 %; Mean Corpuscular Hemoglobin 30.7 pg (27-33); Mean Corpuscular Volume 87.7 fL (80-97); Platelet Count 87 10^3/uL (150-450); Red Blood Count 2.43 10^6/uL (4.06-5.63); Red Cell Distribution Width 13.7 % (12-17); White Blood Count 0.8 10^3/uL (3.6-10.2)
[2022-11-15 06:21] LABS: Magnesium 1.7 mg/dL (1.9-2.7); Phosphorus 2.9 mg/dL (2.5-5.0); Uric Acid 2.8 mg/dL (4.4-7.6)
[2022-11-15] MEDS ORDERED: Magnesium Sulfate 2 gm BAG 2 GM/50 ML BAG IVPB ONE (08:13)
[2022-11-15] MEDS: Polyethylene Glycol 3350 17 GM PACKET PO SCH ×2 (10:05→22:47)
[2022-11-15] MEDS: Calcium/Vitamin D TAB 250/125 TAB PO SCH ×2 (10:40→20:45)
[2022-11-15] MEDS: HYDROmorphone 1 MG/1 ML SYRINGE IV SLOW PU PRN ×3 (10:54→23:37)
[2022-11-15] MEDS: Morphine ER 15 mg TAB ** extended release PO SCH ×2 (11:15→20:44)
[2022-11-15 16:57] LABS: Calcium 8.1 mg/dL (8.6-10.3); Creatinine, Serum 0.84 mg/dL (0.67-1.17); Potassium 4.3 mmol/L (3.5-5.0); eGFR CKD-EPI 118.1 (>60)
[2022-11-15] MEDS: Enoxaparin 40 MG/0.4 ML SYR SUBCUT SCH (17:24)
[2022-11-15] MEDS ORDERED: Vancomycin Trough Check NOTE FOLLOW UP ONE (19:30)
[2022-11-15] MEDS: Vancomycin 1,250 MG in NS 0.9% 250 ml 250 ML IVPB SCH (23:15)
[2022-11-16] MEDS: Cefepime 2 GM in Dextrose 2 GM/50 ML BAG IV SCH ×3 (02:56→19:41)
[2022-11-16] MEDS: Vancomycin 1,250 MG in NS 0.9% 250 ml 250 ML IVPB SCH ×4 (06:18→22:56)
[2022-11-16 06:48] LABS: Calcium 7.7 mg/dL (8.6-10.3); Creatinine, Serum 0.75 mg/dL (0.67-1.17); Magnesium 1.5 mg/dL (1.9-2.7); Phosphorus 2.2 mg/dL (2.5-5.0); Potassium 4.5 mmol/L (3.5-5.0); eGFR CKD-EPI 122.2 (>60)
[2022-11-16 06:49] LABS: Hematocrit 19.6 % (38-53); Hemoglobin 6.8 g/dL (13.2-16.3); Mean Corpuscular Hemoglobin 30.6 pg (27-33); Mean Corpuscular Hgb Conc 34.9 g/dL (31-36); Mean Corpuscular Volume 87.7 fL (80-97); Red Blood Count 2.24 10^6/uL (4.06-5.63); Red Cell Distribution Width 13.5 % (12-17); White Blood Count 0.5 10^3/uL (3.6-10.2)
[2022-11-16] MEDS ORDERED: Magnesium Sulf 4 GM/100 ML IV 4,000 MG/100 ML BAG IVPB ONE (07:11)
[2022-11-16 07:27] LABS: ABS Lymphocytes 0.4 10^3/uL (1.0-4.8); ABS Neutrophils 0.1 10^3/uL (1.5-7.6); Eosinophil % 3.4 %; Lymphocyte % 74.7 %; Mean Platelet Volume 7.2 fL (7.5-11.2); Platelet Count 61 10^3/uL (150-450)
[2022-11-16] MEDS: Calcium/Vitamin D TAB 250/125 TAB PO SCH ×2 (08:50→18:22)
[2022-11-16] MEDS: Morphine ER 15 mg TAB ** extended release PO SCH ×2 (08:51→21:00)
[2022-11-16] MEDS: Polyethylene Glycol 3350 17 GM PACKET PO SCH ×2 (08:51→21:03)
[2022-11-16] MEDS: HYDROmorphone 1 MG/1 ML SYRINGE IV SLOW PU PRN ×3 (08:51→23:16)
[2022-11-16] MEDS ORDERED: Calcium Carb (TUMS) 500 mg CHEW TAB PO PRN (11:13)
[2022-11-16] MEDS: Potassium & Sodium Phos 250 mg = 1 PACKET PO SCH ×2 (13:31→20:59)
[2022-11-16] MEDS ORDERED: Alteplase (CATHFLO) 2 MG VIAL IV ONE (14:45)
[2022-11-16] MEDS: Enoxaparin 40 MG/0.4 ML SYR SUBCUT SCH (15:10)
[2022-11-16] MEDS: Calcium Carb (TUMS) 500 mg CHEW TAB PO SCH (17:33)
[2022-11-16] MEDS ORDERED: Vancomycin Trough Check NOTE FOLLOW UP ONE (22:00)
[2022-11-17] MEDS: Cefepime 2 GM in Dextrose 2 GM/50 ML BAG IV SCH ×3 (02:56→18:12)
[2022-11-17] MEDS ORDERED: Vancomycin 1000 MG in NS 0.9% 250 ML IVPB SCH (06:30)
[2022-11-17 07:20] LABS: Hematocrit 22.8 % (38-53); Hemoglobin 8.1 g/dL (13.2-16.3); Mean Corpuscular Hemoglobin 30.9 pg (27-33); Mean Corpuscular Hgb Conc 35.4 g/dL (31-36); Mean Corpuscular Volume 87.2 fL (80-97); Mean Platelet Volume 7.5 fL (7.5-11.2); Platelet Count 49 10^3/uL (150-450); Red Blood Count 2.62 10^6/uL (4.06-5.63); Red Cell Distribution Width 13.7 % (12-17)
[2022-11-17 07:24] LABS: Albumin 2.9 g/dL (3.2-5.2); Albumin/Globulin Ratio 1.2 (1-3); Calcium 7.8 mg/dL (8.6-10.3); Creatinine, Serum 0.75 mg/dL (0.67-1.17); Globulin 2.4 g/dL (2-4); Magnesium 1.7 mg/dL (1.9-2.7); Phosphorus 2.3 mg/dL (2.5-5.0); Potassium 4.7 mmol/L (3.5-5.0); Total Bilirubin 0.4 mg/dL (0.2-1.0); Total Protein 5.3 g/dL (6.4-8.9); eGFR CKD-EPI 122.2 (>60)
[2022-11-17 08:00] LABS: Hypochromasia 2+; Polychromasia 1+
[2022-11-17 08:01] LABS: ABS Lymphocytes 0.5 10^3/uL (1.0-4.8); ABS Monocytes 0.2 10^3/uL (0.0-1.1); ABS Neutrophils 0.2 10^3/uL (1.5-7.6); Eosinophil % 1.7 %; Lymphocyte % 53.4 %; Nucleated Red Blood Cells % 0.3 /100 WBC (0.0-0.4)
[2022-11-17] MEDS ORDERED: Magnesium Sulfate IV 3 GM in NS 0.9% 100 ml BAG 100 ML IVPB ONE (08:06)
[2022-11-17] MEDS: Polyethylene Glycol 3350 17 GM PACKET PO SCH ×2 (08:38→21:58)
[2022-11-17] MEDS: HYDROmorphone 1 MG/1 ML SYRINGE IV SLOW PU PRN (08:50)
[2022-11-17] MEDS: Morphine ER 15 mg TAB ** extended release PO SCH (08:50)
[2022-11-17] MEDS: Calcium Carb (TUMS) 500 mg CHEW TAB PO SCH ×2 (08:51→21:56)
[2022-11-17] MEDS: Potassium & Sodium Phos 250 mg = 1 PACKET PO SCH ×4 (08:55→22:09)
[2022-11-17] MEDS ORDERED: Morphine ER 15 mg TAB ** extended release PO ONE (10:41)
[2022-11-17] MEDS: Calcium/Vitamin D TAB 250/125 TAB PO SCH ×2 (12:24→18:10)
[2022-11-17] MEDS: Enoxaparin 40 MG/0.4 ML SYR SUBCUT SCH (18:08)
[2022-11-17] MEDS: Morphine ER 30 mg TAB ** extended release PO SCH (21:56)
[2022-11-18] MEDS: Cefepime 2 GM in Dextrose 2 GM/50 ML BAG IV SCH ×2 (02:47→11:44)
[2022-11-18 04:54] LABS: Albumin 3.2 g/dL (3.2-5.2); Albumin/Globulin Ratio 1.2 (1-3); Calcium 8.2 mg/dL (8.6-10.3); Creatinine, Serum 0.9 mg/dL (0.67-1.17); Globulin 2.6 g/dL (2-4); Magnesium 1.5 mg/dL (1.9-2.7); Phosphorus 2.6 mg/dL (2.5-5.0); Potassium 4.4 mmol/L (3.5-5.0); Total Bilirubin 0.4 mg/dL (0.2-1.0); Total Protein 5.8 g/dL (6.4-8.9); eGFR CKD-EPI 115.7 (>60)
[2022-11-18 05:36] LABS: Hematocrit 24.5 % (38-53); Hemoglobin 8.6 g/dL (13.2-16.3); Mean Corpuscular Hemoglobin 30.8 pg (27-33); Mean Corpuscular Hgb Conc 35.2 g/dL (31-36); Mean Corpuscular Volume 87.6 fL (80-97); Mean Platelet Volume 7.9 fL (7.5-11.2); Platelet Count 49 10^3/uL (150-450); Red Cell Distribution Width 13.8 % (12-17); White Blood Count 4.6 10^3/uL (3.6-10.2)
[2022-11-18 05:43] LABS: Basophilic Stippling 1+; Polychromasia 1+
[2022-11-18 05:44] LABS: Toxic Granulation 1+
[2022-11-18 05:47] LABS: ABS Lymphocytes 1.9 10^3/ul (1.0-4.8); ABS Monocytes 0.5 10^3/ul (0.0-1.1); ABS Neutrophils 2.1 10^3/ul (1.5-7.6); Dohle Bodies Present
[2022-11-18] MEDS ORDERED: Vancomycin Trough Check NOTE FOLLOW UP ONE (06:00)
[2022-11-18] MEDS: Calcium Carb (TUMS) 500 mg CHEW TAB PO SCH ×2 (08:15→20:33)
[2022-11-18] MEDS: Morphine ER 30 mg TAB ** extended release PO SCH ×2 (08:16→20:31)
[2022-11-18] MEDS: Polyethylene Glycol 3350 17 GM PACKET PO SCH ×2 (08:21→20:33)
[2022-11-18] MEDS: Potassium & Sodium Phos 250 mg = 1 PACKET PO SCH ×3 (08:22→20:34)
[2022-11-18] MEDS ORDERED: Magnesium Sulf 4 GM/100 ML IV 4,000 MG/100 ML BAG IVPB ONE (09:00)
[2022-11-18] MEDS: Calcium/Vitamin D TAB 250/125 TAB PO SCH ×2 (11:51→20:32)
[2022-11-18] MEDS: Enoxaparin 40 MG/0.4 ML SYR SUBCUT SCH (15:20)
[2022-11-19] MEDS: Potassium & Sodium Phos 250 mg = 1 PACKET PO SCH ×3 (07:44→21:10)
[2022-11-19] MEDS: Calcium Carb (TUMS) 500 mg CHEW TAB PO SCH ×2 (07:44→21:09)
[2022-11-19] MEDS: Morphine ER 30 mg TAB ** extended release PO SCH ×2 (07:45→21:08)
[2022-11-19] MEDS: Polyethylene Glycol 3350 17 GM PACKET PO SCH ×2 (07:46→21:05)
[2022-11-19 08:44] LABS: Hematocrit 25.2 % (38-53); Hemoglobin 8.8 g/dL (13.2-16.3); Mean Corpuscular Hemoglobin 30.6 pg (27-33); Mean Corpuscular Hgb Conc 34.9 g/dL (31-36); Mean Corpuscular Volume 87.9 fL (80-97); Mean Platelet Volume 7.4 fL (7.5-11.2); Platelet Count 57 10^3/uL (150-450); Red Blood Count 2.86 10^6/uL (4.06-5.63); Red Cell Distribution Width 14.5 % (12-17); White Blood Count 22.8 10^3/uL (3.6-10.2)
[2022-11-19 08:56] LABS: Albumin 3.4 g/dL (3.2-5.2); Albumin/Globulin Ratio 1.3 (1-3); Calcium 8.1 mg/dL (8.6-10.3); Creatinine, Serum 0.88 mg/dL (0.67-1.17); Globulin 2.6 g/dL (2-4); Magnesium 1.9 mg/dL (1.9-2.7); Phosphorus 2.3 mg/dL (2.5-5.0); Potassium 4.3 mmol/L (3.5-5.0); Total Bilirubin 0.4 mg/dL (0.2-1.0); eGFR CKD-EPI 116.4 (>60)
[2022-11-19 10:28] LABS: Anisocytosis 1+; Polychromasia 1+
[2022-11-19 11:35] LABS: ABS Basophils 0.1 10^3/uL (0.0-0.1); ABS Lymphocytes 1.9 10^3/uL (1.0-4.8); ABS Monocytes 0.9 10^3/uL (0.0-1.1); ABS Neutrophils 19.9 10^3/uL (1.5-7.6); ABS Nucleated RBC 0.19 10^3/ul; Eosinophil % 0.1 %; Lymphocyte % 8.2 %; Nucleated Red Blood Cells % 0.9 /100 WBC (0.0-0.4)
[2022-11-19] MEDS: Calcium/Vitamin D TAB 250/125 TAB PO SCH ×2 (12:23→18:07)
[2022-11-19] MEDS ORDERED: Enoxaparin 40 MG/0.4 ML SYR SUBCUT SCH (18:00)
[2022-11-19] MEDS: Enoxaparin 40 MG/0.4 ML SYR SUBCUT SCH (18:03)
[2022-11-20 05:07] LABS: Hematocrit 22.9 % (38-53); Hemoglobin 7.9 g/dL (13.2-16.3); Mean Corpuscular Hemoglobin 30.5 pg (27-33); Mean Corpuscular Hgb Conc 34.5 g/dL (31-36); Mean Corpuscular Volume 88.6 fL (80-97); Mean Platelet Volume 7.3 fL (7.5-11.2); Platelet Count 60 10^3/uL (150-450); Red Blood Count 2.58 10^6/uL (4.06-5.63); Red Cell Distribution Width 14.8 % (12-17)
[2022-11-20 05:12] LABS: Albumin 3.2 g/dL (3.2-5.2); Albumin/Globulin Ratio 1.3 (1-3); Calcium 8.2 mg/dL (8.6-10.3); Creatinine, Serum 0.81 mg/dL (0.67-1.17); Globulin 2.4 g/dL (2-4); Magnesium 1.6 mg/dL (1.9-2.7); Phosphorus 3.3 mg/dL (2.5-5.0); Potassium 4.3 mmol/L (3.5-5.0); Total Bilirubin 0.3 mg/dL (0.2-1.0); Total Protein 5.6 g/dL (6.4-8.9); eGFR CKD-EPI 119.4 (>60)
[2022-11-20 06:03] LABS: Polychromasia 2+
[2022-11-20 06:04] LABS: ABS Basophils 0.1 10^3/uL (0.0-0.1); ABS Lymphocytes 1.1 10^3/uL (1.0-4.8); ABS Monocytes 0.9 10^3/uL (0.0-1.1); ABS Nucleated RBC 0.04 10^3/ul; Eosinophil % 0.1 %; Nucleated Red Blood Cells % 0.1 /100 WBC (0.0-0.4)
[2022-11-20] MEDS: Calcium Carb (TUMS) 500 mg CHEW TAB PO SCH (09:12)
[2022-11-20] MEDS: Potassium & Sodium Phos 250 mg = 1 PACKET PO SCH ×2 (09:13→13:34)
[2022-11-20] MEDS: Morphine ER 30 mg TAB ** extended release PO SCH (09:13)
[2022-11-20] MEDS: Polyethylene Glycol 3350 17 GM PACKET PO SCH (09:38)
[2022-11-20] MEDS: Calcium/Vitamin D TAB 250/125 TAB PO SCH (10:59)
[2022-11-20] MEDS ORDERED: Magnesium Sulfate 2 gm BAG 2 GM/50 ML BAG IVPB ONE (11:04)
[2022-11-20 14:49] VITALS: BP 126/76
[2022-11-21 16:47] LABS: BLYM Result Summary Negative; BLYM Source Right Neck; BLYM Tissue ID S23-6778-B
== END 2022-11-20 17:33 | disposition home or self-care (01) | DRG 681 ==
LOC: EDHOLD 12:06 → ED 12:06 → OBSVTOIN 13:58 → SUATTDRO 13:58 → MEDTELE 16:11
PROVIDERS: ADMIT Student in an Organized Health Care Education/Training Program; ATTEND Internal Medicine

== ENCOUNTER 2022-12-22 08:50 | Inpatient (IN) ==
[2022-12-22 09:44] LABS: Hemoglobin 9.1 g/dL (13.2-16.3); Mean Corpuscular Hemoglobin 31.7 pg (27-33); Mean Corpuscular Hgb Conc 34.8 g/dL (31-36); Mean Platelet Volume 8.6 fL (7.5-11.2); Platelet Count 263 10^3/uL (150-450); Red Blood Count 2.86 10^6/uL (4.06-5.63); Red Cell Distribution Width 17.1 % (12-17); White Blood Count 12.7 10^3/uL (3.6-10.2)
[2022-12-22 09:46] LABS: ABS Neutrophils 10.1 10^3/uL (1.5-7.6)
[2022-12-22 09:50] LABS: Albumin 3.5 g/dL (3.2-5.2); Calcium 8.2 mg/dL (8.6-10.3); Potassium 4.3 mmol/L (3.5-5.0); Total Bilirubin 0.3 mg/dL (0.2-1.0)
[2022-12-22 09:56] LABS: Albumin/Globulin Ratio 1.5 (1-3); Creatinine, Serum 0.83 mg/dL (0.67-1.17); Globulin 2.4 g/dL (2-4); Total Protein 5.9 g/dL (6.4-8.9); eGFR CKD-EPI 118.5 (>60)
[2022-12-22 10:07] LABS: ABS Basophils 0.1 10^3/uL (0.0-0.1); ABS Lymphocytes 1.2 10^3/uL (1.0-4.8); ABS Monocytes 1.2 10^3/uL (0.0-1.1); ABS Nucleated RBC 0.08 10^3/ul; Lymphocyte % 9.7 %; Nucleated Red Blood Cells % 0.6 /100 WBC (0.0-0.4)
[2022-12-22 10:10] LABS: Anisocytosis 1+; Polychromasia 1+
[2022-12-22] MEDS ORDERED: methylPREDNISolone SOD SUCC 125 mg 2 ML VIAL ONE (10:17)
[2022-12-22] MEDS ORDERED: Famotidine IV 10 MG/ML 2 ml VIAL (20 mg) ONE (10:18)
[2022-12-22] MEDS ORDERED: diphenhydrAMINE 50 MG/ML INJ SYRINGE *CHOA ONE (10:18)
[2022-12-22] MEDS ORDERED: PALONOSETRON HCL 0.05 MG/ML (0.25 MG) SYRINGE (0.05 MG/ML) ONE (10:18)
[2022-12-22] MEDS ORDERED: Famotidine IV 10 MG/ML 2 ml VIAL (20 mg) IV ONE (11:00)
[2022-12-22] MEDS ORDERED: APREPITANT 130 MG in Premix IV 0 ML IV ONE (11:00)
[2022-12-22] MEDS ORDERED: RITUXIMAB ABBS IVPB ONE (11:00)
[2022-12-22] MEDS ORDERED: NS 0.9% IVPB ONE ×3 (11:00→15:00)
[2022-12-22] MEDS ORDERED: methylPREDNISolone SOD SUCC 125 mg 2 ML VIAL IV ONE (11:00)
[2022-12-22] MEDS ORDERED: PALONOSETRON HCL 0.05 MG/ML (0.25 MG) SYRINGE (0.05 MG/ML) IV ONE (11:00)
[2022-12-22] MEDS ORDERED: Senna TAB 8.6 mg TAB PO PRN (13:07)
[2022-12-22] MEDS ORDERED: Polyethylene Glycol 3350 17 GM PACKET PO PRN (13:07)
[2022-12-22] MEDS ORDERED: ETOPOSIDE IVPB ONE ×2 (15:00)
[2022-12-22] MEDS ORDERED: DOXORUBICIN IVPB ONE ×2 (15:00)
[2022-12-22] MEDS ORDERED: VINCRISTINE IVPB ONE ×2 (15:00)
[2022-12-22] MEDS: Naloxone Nasal Spray 4 MG/0.1 ML NASAL.SPR INTRANASAL SCH ×19 (17:35→17:54)
[2022-12-22] MEDS ORDERED: Naloxone Nasal Spray 4 MG/0.1 ML NASAL.SPR INTRANASAL PRN (18:00)
[2022-12-22] MEDS: Potassium & Sodium Phos 250 mg = 1 PACKET PO SCH ×2 (18:25→21:47)
[2022-12-22] MEDS: Sulfamethox/Trimethoprim DS TAB 800/160 mg PO SCH (18:27)
[2022-12-22] MEDS: Morphine ER 30 mg TAB ** extended release PO SCH (21:49)
[2022-12-23] MEDS: Potassium & Sodium Phos 250 mg = 1 PACKET PO SCH ×3 (05:53→21:27)
[2022-12-23 06:51] LABS: Hematocrit 27.4 % (38-53); Hemoglobin 9.5 g/dL (13.2-16.3); Mean Corpuscular Hemoglobin 31.2 pg (27-33); Mean Corpuscular Hgb Conc 34.8 g/dL (31-36); Mean Corpuscular Volume 89.7 fL (80-97); Platelet Count 303 10^3/uL (150-450); Red Blood Count 3.06 10^6/uL (4.06-5.63); Red Cell Distribution Width 17.3 % (12-17); White Blood Count 21.6 10^3/uL (3.6-10.2)
[2022-12-23 07:11] LABS: Albumin 3.7 g/dL (3.2-5.2); Albumin/Globulin Ratio 1.5 (1-3); Calcium 8.2 mg/dL (8.6-10.3); Creatinine, Serum 0.84 mg/dL (0.67-1.17); Globulin 2.5 g/dL (2-4); Potassium 4.4 mmol/L (3.5-5.0); Total Bilirubin 0.4 mg/dL (0.2-1.0); Total Protein 6.2 g/dL (6.4-8.9); eGFR CKD-EPI 118.1 (>60)
[2022-12-23] MEDS: Calcium Carb (TUMS) 500 mg CHEW TAB PO SCH (09:01)
[2022-12-23] MEDS: Morphine ER 30 mg TAB ** extended release PO SCH ×2 (09:02→21:26)
[2022-12-23 09:43] LABS: Anisocytosis 1+; Tear Drop Cells 2+
[2022-12-23 09:44] LABS: ABS Basophils 0.1 10^3/uL (0.0-0.1); ABS Lymphocytes 0.7 10^3/uL (1.0-4.8); ABS Monocytes 0.4 10^3/uL (0.0-1.1); ABS Neutrophils 20.5 10^3/uL (1.5-7.6); ABS Nucleated RBC 0.03 10^3/ul; Lymphocyte % 3.3 %; Nucleated Red Blood Cells % 0.2 /100 WBC (0.0-0.4)
[2022-12-23] MEDS ORDERED: NS 0.9% ONE (11:00)
[2022-12-23] MEDS ORDERED: CYTARABINE ONE (11:00)
[2022-12-23] MEDS: DOXORUBICIN IVPB SCH (14:59)
[2022-12-23] MEDS: NS 0.9% IVPB SCH (14:59)
[2022-12-23] MEDS: ETOPOSIDE IVPB SCH (14:59)
[2022-12-23] MEDS: VINCRISTINE IVPB SCH (14:59)
[2022-12-24] MEDS: Potassium & Sodium Phos 250 mg = 1 PACKET PO SCH ×3 (05:44→21:06)
[2022-12-24 06:25] LABS: Hematocrit 26.1 % (38-53); Hemoglobin 9.1 g/dL (13.2-16.3); Mean Corpuscular Hemoglobin 31.2 pg (27-33); Mean Corpuscular Hgb Conc 34.8 g/dL (31-36); Mean Corpuscular Volume 89.5 fL (80-97); Mean Platelet Volume 7.3 fL (7.5-11.2); Platelet Count 334 10^3/uL (150-450); Red Blood Count 2.91 10^6/uL (4.06-5.63); Red Cell Distribution Width 17.8 % (12-17); White Blood Count 17.9 10^3/uL (3.6-10.2)
[2022-12-24 06:29] LABS: ABS Lymphocytes 0.3 10^3/uL (1.0-4.8); ABS Monocytes 0.4 10^3/uL (0.0-1.1); ABS Neutrophils 17.1 10^3/uL (1.5-7.6); Lymphocyte % 1.9 %
[2022-12-24 06:53] LABS: Albumin 3.8 g/dL (3.2-5.2); Albumin/Globulin Ratio 1.8 (1-3); Calcium 8.1 mg/dL (8.6-10.3); Creatinine, Serum 0.68 mg/dL (0.67-1.17); Globulin 2.1 g/dL (2-4); Potassium 4.5 mmol/L (3.5-5.0); Total Bilirubin 0.3 mg/dL (0.2-1.0); Total Protein 5.9 g/dL (6.4-8.9); eGFR CKD-EPI 125.9 (>60)
[2022-12-24] MEDS: Calcium Carb (TUMS) 500 mg CHEW TAB PO SCH (08:47)
[2022-12-24] MEDS: Morphine ER 30 mg TAB ** extended release PO SCH ×2 (08:48→21:05)
[2022-12-24] MEDS ORDERED: PALONOSETRON HCL 0.05 MG/ML (0.25 MG) SYRINGE (0.05 MG/ML) IV ONE (09:00)
[2022-12-24] MEDS: VINCRISTINE IVPB SCH (14:42)
[2022-12-24] MEDS: DOXORUBICIN IVPB SCH (14:42)
[2022-12-24] MEDS: ETOPOSIDE IVPB SCH (14:42)
[2022-12-24] MEDS: NS 0.9% IVPB SCH (14:42)
[2022-12-24] MEDS: Sulfamethox/Trimethoprim DS TAB 800/160 mg PO SCH (18:18)
[2022-12-25] MEDS: Potassium & Sodium Phos 250 mg = 1 PACKET PO SCH ×3 (06:17→20:58)
[2022-12-25 06:19] LABS: ABS Lymphocytes 0.3 10^3/uL (1.0-4.8); ABS Monocytes 0.3 10^3/uL (0.0-1.1); ABS Nucleated RBC 0.03 10^3/ul; Hematocrit 27.5 % (38-53); Hemoglobin 9.7 g/dL (13.2-16.3); Lymphocyte % 1.6 %; Mean Corpuscular Hemoglobin 31.4 pg (27-33); Mean Corpuscular Hgb Conc 35.2 g/dL (31-36); Mean Corpuscular Volume 89.2 fL (80-97); Mean Platelet Volume 7.5 fL (7.5-11.2); Nucleated Red Blood Cells % 0.2 /100 WBC (0.0-0.4); Platelet Count 367 10^3/uL (150-450); Red Blood Count 3.08 10^6/uL (4.06-5.63); Red Cell Distribution Width 17.3 % (12-17); White Blood Count 15.6 10^3/uL (3.6-10.2)
[2022-12-25 07:00] LABS: Albumin 3.7 g/dL (3.2-5.2); Albumin/Globulin Ratio 1.6 (1-3); Calcium 7.9 mg/dL (8.6-10.3); Creatinine, Serum 0.67 mg/dL (0.67-1.17); Globulin 2.3 g/dL (2-4); Potassium 4.3 mmol/L (3.5-5.0); Total Bilirubin 0.4 mg/dL (0.2-1.0); eGFR CKD-EPI 126.4 (>60)
[2022-12-25] MEDS: Morphine ER 30 mg TAB ** extended release PO SCH ×2 (08:00→20:57)
[2022-12-25] MEDS: Calcium Carb (TUMS) 500 mg CHEW TAB PO SCH (08:00)
[2022-12-25] MEDS: DOXORUBICIN IVPB SCH (14:39)
[2022-12-25] MEDS: VINCRISTINE IVPB SCH (14:39)
[2022-12-25] MEDS: NS 0.9% IVPB SCH (14:39)
[2022-12-25] MEDS: ETOPOSIDE IVPB SCH (14:39)
[2022-12-26] MEDS: Potassium & Sodium Phos 250 mg = 1 PACKET PO SCH ×2 (06:11→13:31)
[2022-12-26 06:42] LABS: ABS Lymphocytes 0.2 10^3/uL (1.0-4.8); ABS Monocytes 0.1 10^3/uL (0.0-1.1); ABS Neutrophils 8.2 10^3/uL (1.5-7.6); Hemoglobin 9.5 g/dL (13.2-16.3); Lymphocyte % 1.9 %; Mean Corpuscular Hemoglobin 31.8 pg (27-33); Mean Corpuscular Hgb Conc 36.4 g/dL (31-36); Mean Corpuscular Volume 87.3 fL (80-97); Mean Platelet Volume 7.2 fL (7.5-11.2); Platelet Count 364 10^3/uL (150-450); Red Blood Count 2.97 10^6/uL (4.06-5.63); Red Cell Distribution Width 16.9 % (12-17); White Blood Count 8.5 10^3/uL (3.6-10.2)
[2022-12-26 07:03] LABS: Albumin 3.6 g/dL (3.2-5.2); Albumin/Globulin Ratio 1.7 (1-3); Calcium 7.6 mg/dL (8.6-10.3); Creatinine, Serum 0.63 mg/dL (0.67-1.17); Globulin 2.1 g/dL (2-4); Potassium 4.3 mmol/L (3.5-5.0); Total Bilirubin 0.4 mg/dL (0.2-1.0); Total Protein 5.7 g/dL (6.4-8.9); eGFR CKD-EPI 128.8 (>60)
[2022-12-26] MEDS: Morphine ER 30 mg TAB ** extended release PO SCH (08:17)
[2022-12-26] MEDS: Calcium Carb (TUMS) 500 mg CHEW TAB PO SCH (08:17)
[2022-12-26 13:19] VITALS: BP 137/85
== END 2022-12-26 15:50 | disposition home or self-care (01) | DRG 696 ==
LOC: CHOA 08:50 → MED 16:24
PROVIDERS: ADMIT Internal Medicine Hematology & Oncology; ATTEND Internal Medicine Hematology & Oncology

== ENCOUNTER 2023-01-12 14:23 | Inpatient (IN) ==
[2023-01-12] MEDS ORDERED: Polyethylene Glycol 3350 17 GM PACKET PO PRN (14:59)
[2023-01-12] MEDS ORDERED: Morphine ER 30 mg TAB ** extended release PO PRN (14:59)
[2023-01-12] MEDS ORDERED: Senna TAB 8.6 mg TAB PO PRN (14:59)
[2023-01-12 15:07] LABS: Hematocrit 24.5 % (38-53); Hemoglobin 8.5 g/dL (13.2-16.3); Mean Corpuscular Hemoglobin 32.2 pg (27-33); Mean Corpuscular Hgb Conc 34.6 g/dL (31-36); Mean Corpuscular Volume 93.1 fL (80-97); Mean Platelet Volume 8.8 fL (7.5-11.2); Platelet Count 202 10^3/uL (150-450); Red Blood Count 2.63 10^6/uL (4.06-5.63); Red Cell Distribution Width 20.5 % (12-17); White Blood Count 23.9 10^3/uL (3.6-10.2)
[2023-01-12 15:23] LABS: Albumin 3.3 g/dL (3.2-5.2); Calcium 8.1 mg/dL (8.6-10.3); Magnesium 1.4 mg/dL (1.9-2.7); Potassium 3.5 mmol/L (3.5-5.0); Total Bilirubin 0.3 mg/dL (0.2-1.0)
[2023-01-12 15:29] LABS: Albumin/Globulin Ratio 1.8 (1-3); Creatinine, Serum 0.77 mg/dL (0.67-1.17); Globulin 1.8 g/dL (2-4); Total Protein 5.1 g/dL (6.4-8.9); eGFR CKD-EPI 120.5 (>60)
[2023-01-12 16:00] LABS: ABS Basophils 0.2 10^3/uL (0.0-0.1); ABS Monocytes 1.5 10^3/uL (0.0-1.1); ABS Neutrophils 21.2 10^3/uL (1.5-7.6); ABS Nucleated RBC 0.01 10^3/ul; Anisocytosis 2+; Lymphocyte % 4.1 %; Nucleated Red Blood Cells % 0.1 /100 WBC (0.0-0.4); Polychromasia 2+; Tear Drop Cells 1+
[2023-01-12] MEDS ORDERED: APREPITANT 130 MG in Premix IV 0 ML IV ONE (16:00)
[2023-01-12] MEDS: PALONOSETRON HCL 0.05 MG/ML (0.25 MG) SYRINGE (0.05 MG/ML) IV SCH (16:24)
[2023-01-12] MEDS: VINCRISTINE IVPB SCH (16:28)
[2023-01-12] MEDS: DOXORUBICIN IVPB SCH (16:28)
[2023-01-12] MEDS: ETOPOSIDE IVPB SCH (16:28)
[2023-01-12] MEDS: NS 0.9% IVPB SCH (16:28)
[2023-01-12] MEDS ORDERED: LORazepam 2 mg VIAL 1 ml IV PUSH ONE (16:47)
[2023-01-12] MEDS ORDERED: LORazepam 2 mg VIAL 1 ml IV PUSH PRN (16:47)
[2023-01-12] MEDS ORDERED: Lorazepam PYXIS KEY PRN (16:47)
[2023-01-12] MEDS: Morphine 2 MG/ML SYRINGE IV PRN (17:30)
[2023-01-12] MEDS: NS 0.9% 1000 ml BAG 1,000 ML IV SCH (17:37)
[2023-01-12] MEDS: Ondansetron 4 mg VIAL 2 MG/ML 2 ml VIAL IV PRN (22:05)
[2023-01-12] MEDS: Morphine ER 30 mg TAB ** extended release PO SCH (22:09)
[2023-01-12] MEDS: Sulfamethox/Trimethoprim DS TAB 800/160 mg PO SCH (22:10)
[2023-01-13] MEDS: NS 0.9% 1000 ml BAG 1,000 ML IV SCH ×3 (00:31→20:56)
[2023-01-13 06:09] LABS: Hematocrit 25.8 % (38-53); Hemoglobin 8.7 g/dL (13.2-16.3); Mean Corpuscular Hemoglobin 31.1 pg (27-33); Mean Corpuscular Hgb Conc 33.7 g/dL (31-36); Mean Corpuscular Volume 92.4 fL (80-97); Mean Platelet Volume 8.8 fL (7.5-11.2); Platelet Count 218 10^3/uL (150-450); Red Blood Count 2.79 10^6/uL (4.06-5.63); Red Cell Distribution Width 20.1 % (12-17); White Blood Count 28.1 10^3/uL (3.6-10.2)
[2023-01-13 06:19] LABS: Albumin 3.6 g/dL (3.2-5.2); Calcium 8.4 mg/dL (8.6-10.3); Creatinine, Serum 0.82 mg/dL (0.67-1.17); Globulin 1.8 g/dL (2-4); Magnesium 1.5 mg/dL (1.9-2.7); Potassium 4.2 mmol/L (3.5-5.0); Total Bilirubin 0.3 mg/dL (0.2-1.0); Total Protein 5.4 g/dL (6.4-8.9); eGFR CKD-EPI 118.2 (>60)
[2023-01-13 07:52] LABS: ABS Basophils 0.1 10^3/uL (0.0-0.1); ABS Lymphocytes 0.6 10^3/uL (1.0-4.8); ABS Monocytes 0.9 10^3/uL (0.0-1.1); ABS Neutrophils 26.4 10^3/uL (1.5-7.6); ABS Nucleated RBC 0.02 10^3/ul; Lymphocyte % 2.1 %; Nucleated Red Blood Cells % 0.1 /100 WBC (0.0-0.4); RBC Morphology Normal (Normal)
[2023-01-13] MEDS: Morphine 2 MG/ML SYRINGE IV PRN (08:29)
[2023-01-13] MEDS: Ondansetron 4 mg VIAL 2 MG/ML 2 ml VIAL IV PRN ×3 (08:29→21:09)
[2023-01-13] MEDS ORDERED: Famotidine IV 10 MG/ML 2 ml VIAL (20 mg) IV SLOW PU ONE (09:59)
[2023-01-13] MEDS: Al Hydrox/Mg Hydrox/Simet LIQ 30 ML UDC PO PRN ×2 (10:26→22:59)
[2023-01-13] MEDS ORDERED: Magnesium Sulf 4 GM/100 ML IV 4,000 MG/100 ML BAG IVPB ONE (10:30)
[2023-01-13] MEDS: Morphine ER 30 mg TAB ** extended release PO SCH ×2 (11:40→21:09)
[2023-01-13] MEDS ORDERED: Dextran 70/Hypromellose Tears Eye Drops 15 ml BTL (for Artificials Tears) BOTH EYES PRN (12:20)
[2023-01-13] MEDS: NS 0.9% IVPB SCH (15:35)
[2023-01-13] MEDS: DOXORUBICIN IVPB SCH (15:35)
[2023-01-13] MEDS: ETOPOSIDE IVPB SCH (15:35)
[2023-01-13] MEDS: VINCRISTINE IVPB SCH (15:35)
[2023-01-14] MEDS: Morphine 2 MG/ML SYRINGE IV PRN (05:05)
[2023-01-14] MEDS: NS 0.9% 1000 ml BAG 1,000 ML IV SCH ×2 (05:10→15:32)
[2023-01-14] MEDS: Ondansetron 4 mg VIAL 2 MG/ML 2 ml VIAL IV PRN ×2 (05:17→10:34)
[2023-01-14 06:20] LABS: ABS Lymphocytes 0.3 10^3/uL (1.0-4.8); ABS Monocytes 0.6 10^3/uL (0.0-1.1); ABS Neutrophils 29.6 10^3/uL (1.5-7.6); Hematocrit 26.8 % (38-53); Hemoglobin 9.2 g/dL (13.2-16.3); Lymphocyte % 1.1 %; Mean Corpuscular Hemoglobin 31.6 pg (27-33); Mean Corpuscular Hgb Conc 34.1 g/dL (31-36); Mean Corpuscular Volume 92.5 fL (80-97); Mean Platelet Volume 8.2 fL (7.5-11.2); Platelet Count 277 10^3/uL (150-450); Red Cell Distribution Width 20.5 % (12-17); White Blood Count 30.6 10^3/uL (3.6-10.2)
[2023-01-14 06:41] LABS: Albumin 3.5 g/dL (3.2-5.2); Albumin/Globulin Ratio 1.8 (1-3); Calcium 7.7 mg/dL (8.6-10.3); Creatinine, Serum 0.75 mg/dL (0.67-1.17); Globulin 1.9 g/dL (2-4); Magnesium 2.3 mg/dL (1.9-2.7); Total Bilirubin 0.4 mg/dL (0.2-1.0); Total Protein 5.4 g/dL (6.4-8.9); eGFR CKD-EPI 121.4 (>60)
[2023-01-14] MEDS: Al Hydrox/Mg Hydrox/Simet LIQ 30 ML UDC PO PRN (08:03)
[2023-01-14] MEDS: Morphine ER 30 mg TAB ** extended release PO SCH ×2 (09:10→21:50)
[2023-01-14] MEDS ORDERED: Famotidine IV 10 MG/ML 2 ml VIAL (20 mg) IV SLOW PU ONE (10:02)
[2023-01-14] MEDS ORDERED: Methotrexate PF 12 MG in NS Sodium Chloride 0.9% PF 9.52 ML INTRATHEC ONE (10:30)
[2023-01-14] MEDS ORDERED: LORazepam 2 mg VIAL 1 ml IV PUSH ONE (10:31)
[2023-01-14] MEDS ORDERED: Lorazepam PYXIS KEY PRN (10:31)
[2023-01-14] MEDS: PALONOSETRON HCL 0.05 MG/ML (0.25 MG) SYRINGE (0.05 MG/ML) IV SCH (15:43)
[2023-01-14] MEDS: VINCRISTINE IVPB SCH (15:48)
[2023-01-14] MEDS: ETOPOSIDE IVPB SCH (15:48)
[2023-01-14] MEDS: NS 0.9% IVPB SCH (15:48)
[2023-01-14] MEDS: DOXORUBICIN IVPB SCH (15:48)
[2023-01-14] MEDS: Sulfamethox/Trimethoprim DS TAB 800/160 mg PO SCH (21:50)
[2023-01-15] MEDS: NS 0.9% 1000 ml BAG 1,000 ML IV SCH ×3 (01:14→21:46)
[2023-01-15 08:04] LABS: Hematocrit 27.7 % (38-53); Hemoglobin 9.5 g/dL (13.2-16.3); Mean Corpuscular Hemoglobin 31.6 pg (27-33); Mean Corpuscular Hgb Conc 34.2 g/dL (31-36); Mean Corpuscular Volume 92.3 fL (80-97); Mean Platelet Volume 7.3 fL (7.5-11.2); Platelet Count 323 10^3/uL (150-450); Red Cell Distribution Width 19.7 % (12-17); White Blood Count 13.7 10^3/uL (3.6-10.2)
[2023-01-15 08:45] LABS: Albumin 3.5 g/dL (3.2-5.2); Albumin/Globulin Ratio 1.9 (1-3); Calcium 7.8 mg/dL (8.6-10.3); Creatinine, Serum 0.62 mg/dL (0.67-1.17); Globulin 1.8 g/dL (2-4); Magnesium 2.2 mg/dL (1.9-2.7); Potassium 3.6 mmol/L (3.5-5.0); Total Bilirubin 0.5 mg/dL (0.2-1.0); Total Protein 5.3 g/dL (6.4-8.9); eGFR CKD-EPI 128.6 (>60)
[2023-01-15 09:05] LABS: Anisocytosis 1+
[2023-01-15 09:16] LABS: ABS Lymphocytes 0.4 10^3/uL (1.0-4.8); ABS Monocytes 0.5 10^3/uL (0.0-1.1); ABS Neutrophils 12.8 10^3/uL (1.5-7.6); ABS Nucleated RBC 0.01 10^3/ul; Lymphocyte % 2.7 %
[2023-01-15] MEDS: Ondansetron 4 mg VIAL 2 MG/ML 2 ml VIAL IV PRN (11:05)
[2023-01-15] MEDS: Famotidine IV 10 MG/ML 2 ml VIAL (20 mg) IV SLOW PU SCH (11:09)
[2023-01-15] MEDS: Al Hydrox/Mg Hydrox/Simet LIQ 30 ML UDC PO PRN (11:10)
[2023-01-15] MEDS: Morphine ER 30 mg TAB ** extended release PO SCH ×2 (11:11→20:12)
[2023-01-15] MEDS: NS 0.9% IVPB SCH ×2 (14:16→17:24)
[2023-01-15] MEDS: ETOPOSIDE IVPB SCH ×2 (14:16→17:24)
[2023-01-15] MEDS: DOXORUBICIN IVPB SCH ×2 (14:16→17:24)
[2023-01-15] MEDS: VINCRISTINE IVPB SCH ×2 (14:16→17:24)
[2023-01-16] MEDS: NS 0.9% 1000 ml BAG 1,000 ML IV SCH (07:51)
[2023-01-16] MEDS: Famotidine IV 10 MG/ML 2 ml VIAL (20 mg) IV SLOW PU SCH (08:08)
[2023-01-16] MEDS: Morphine ER 30 mg TAB ** extended release PO SCH (08:08)
[2023-01-16] MEDS: Morphine 2 MG/ML SYRINGE IV PRN (08:14)
[2023-01-16 09:42] LABS: ABS Lymphocytes 0.2 10^3/uL (1.0-4.8); ABS Monocytes 0.2 10^3/uL (0.0-1.1); ABS Neutrophils 12.5 10^3/uL (1.5-7.6); ABS Nucleated RBC 0.01 10^3/ul; Hemoglobin 9.9 g/dL (13.2-16.3); Lymphocyte % 1.8 %; Mean Corpuscular Hemoglobin 32.2 pg (27-33); Mean Corpuscular Hgb Conc 35.6 g/dL (31-36); Mean Corpuscular Volume 90.5 fL (80-97); Mean Platelet Volume 7.6 fL (7.5-11.2); Platelet Count 376 10^3/uL (150-450); Red Blood Count 3.09 10^6/uL (4.06-5.63); Red Cell Distribution Width 19.5 % (12-17); White Blood Count 12.9 10^3/uL (3.6-10.2)
[2023-01-16 10:30] LABS: Albumin 3.9 g/dL (3.2-5.2); Albumin/Globulin Ratio 2.2 (1-3); Creatinine, Serum 0.66 mg/dL (0.67-1.17); Globulin 1.8 g/dL (2-4); Magnesium 2.3 mg/dL (1.9-2.7); Potassium 3.7 mmol/L (3.5-5.0); Total Bilirubin 0.5 mg/dL (0.2-1.0); Total Protein 5.7 g/dL (6.4-8.9); eGFR CKD-EPI 126.2 (>60)
[2023-01-16 14:28] VITALS: BP 168/95
== END 2023-01-16 15:07 | disposition home or self-care (01) | DRG 696 ==
LOC: CHOA 14:23 → MED 16:16
PROVIDERS: ADMIT Internal Medicine Hematology & Oncology; ATTEND Internal Medicine Hematology & Oncology